=== PATIENT | female | born 1940 | race Caucasian/White ===

== ENCOUNTER → 2017-12-06 13:47 | Outpatient (CLI) | payer MEDICARE, BC, SELFPAY | PROVIDERS: Visit Provider Physician Assistant | DX: R30.0 Dysuria (principal) | CPT/HCPCS: 87077; 87086; 87186 ==

== ENCOUNTER → 2018-04-03 16:30 | Outpatient (CLI) | payer MEDICARE, BC, SELFPAY | PROVIDERS: Visit Provider Physician Assistant | DX: N39.0 Urinary tract infection, site not specified (principal) | CPT/HCPCS: 87077; 87086; 87186 ==

== ENCOUNTER → 2018-12-05 17:01 | Outpatient (CLI) | payer MEDICARE, BC, SELFPAY ==
[2018-12-05 17:12] LABS: Add Manual Diff / Slide Review NO; Basophils Absolute Auto 100 /uL (0-100); Basophils Percent Auto 0.7 % (0-2); Eosinophils Absolute Auto 0 /uL (0-450); Eosinophils Percent Auto 0.2 % (2-4); Hematocrit 44.9 % (36-46); Hemoglobin 15.5 g/dL (12.0-16.0); Lymphocytes Absolute Auto 2500 /uL (1100-4500); Lymphocytes Percent Auto 24.9 % (25-40); Mean Corpuscular HGB Conc 34.6 % (30-36); Mean Corpuscular Hemoglobin 32.8 PG (26-34); Monocytes Absolute Auto 800 /uL (0-900); Monocytes Percent Auto 8.1 % (3-14); Neutrophils Absolute Auto 6600 /uL (1500-7000); Neutrophils Percent Auto 66.1 % (50-75); Platelet Count 302 X10^3/uL (150-400); Red Blood Cell Count 4.73 X10^6/uL (4.0-5.2); Red Cell Distribution Width 12.8 % (11.6-14.8); White Blood Cell Count 9.9 X10^3/uL (4.5-11.0)
--- NOTE | 2018-12-05 17:32 | DI.RAD.S_ITS ---
PROCEDURE: XR ACUTE ABDOMEN SERIES INDICATIONS: abdominal pain TECHNIQUE: One view chest and two views of the abdomen were acquired. COMPARISON: None. FINDINGS: Surgical changes and devices: A pessary in the pelvis.. Chest: Lungs are clear. Heart size is normal. No pleural effusions. No pneumoperitoneum. Abdomen: Large amount of fecal debris. Bowel gas pattern is normal. No suspicious calcifications. Visualized solid organ contours appear normal. Bones: No suspicious bony lesions. IMPRESSION: Large amount of fecal debris. Normal bowel gas pattern. Dictated by: Tomás Magana M.D. on 12/05/2018 at 18:00 Approved by: Tomás Magana M.D. on 12/05/2018 at 18:02
[2018-12-05 17:38] LABS: Alanine Aminotransferase 24 IU/L (9-52); Albumin 4.7 g/dL (3.5-5.0); Albumin Globulin Ratio 1.3 (1.0-2.8); Alkaline Phosphatase 61 U/L (38-126); Aspartate Aminotransferase 25 IU/L (14-36); BUN Creatinine Ratio 23.3 (6-22); Bilirubin Total 0.8 mg/dL (0.2-1.3); Blood Urea Nitrogen 14 mg/dL (7-17); Calcium 9.9 mg/dL (8.4-10.2); Carbon Dioxide 29 mmol/L (22-32); Chloride 101 mmol/L (98-107); Estimated Glomerular Filt Rate > 60.0 mL/min (>60); Globulin 3.6 g/dL (1.7-4.1); Glucose 97 mg/dL (80-110); HEMOLYSIS < 15 (0-50); Lipase 105 U/L (23-300); Potassium 3.8 mmol/L (3.4-5.1); Sodium 140 mmol/L (137-145); Total Protein 8.3 g/dL (6.3-8.2)
== END ==
PROVIDERS: Visit Provider Physician Assistant
DX: R10.9 Unspecified abdominal pain (principal)
CPT/HCPCS: 36415; 74022; 80053; 83690; 85025

== ENCOUNTER → 2018-12-06 13:20 | Outpatient (CLI) | payer MEDICARE, BC, SELFPAY ==
--- NOTE | 2018-12-06 13:57 | DI.CT.S_ITS ---
PROCEDURE: CT ABDOMEN PELVIS W CON INDICATIONS: abdominal pain TECHNIQUE: After the administration of oral and intravenous contrast, 5 mm thick sections acquired from the diaphragms to the symphysis. 5 mm thick coronal and sagittal reformats were performed. For radiation dose reduction, the following was used: automated exposure control, adjustment of mA and/or kV according to patient size. COMPARISON: Located Within [facility], CR, XR ACUTE ABDOMEN SERIES, 12/05/2018, 17:38. FINDINGS: Image quality: Excellent. ABDOMEN: Lung bases: There is a 6 mm groundglass nodule in the left lower lobe. Heart size is normal. Solid organs: Liver is normal in size and enhancement. Gallbladder is normal. Biliary system is non-dilated. Pancreas enhances normally. Spleen is normal in size and enhancement. No adrenal nodules. Kidneys are normal in size and enhancement, without hydronephrosis. Peritoneum and bowel: There are numerous colonic diverticula. There is segmental thickening of sigmoid colon. Stomach, small bowel, and colon loops are normal in caliber. No free fluid or air. Nodes and vessels: No retroperitoneal or mesenteric adenopathy. Aorta and inferior vena cava are normal in caliber. Moderate atherosclerotic calcification. Miscellaneous: There is a tiny umbilical hernia. PELVIS: Genitourinary: Bladder wall thickness is normal. Hysterectomy. There is a metallic device in pelvis. Miscellaneous: No inguinal hernias or adenopathy. Bones: No suspicious bony lesions. No vertebral body compression fractures. Severe degenerative disc and facet disease lumbar spine. IMPRESSION: 1. There are numerous colonic diverticula. There is segmental thickening of sigmoid colon suggesting diverticulitis. Colonic neoplasm could have a similar appearance. Followup colonoscopy is suggested. 2. A 6 mm groundglass nodule in the left lower lobe. Please see enclosed followup recommendation. Fleischner Society criteria for SUB-SOLID lung nodule followup. Solitary pure ground-glass nodules5 mm or lessNo followup needed. >5 mm3 mo follow-up CT to confirm persistence. Then annual CT for 3 years. Part-solid nodules3 mo follow-up CT to confirm persistence. If persistent with solid component <5 mm, annual CT for at least 3 years. If solid component is 5 mm or more, biopsy or surgical resection. Consider PET-CT for lesions > 10 mm. Multiple sub-solid nodulesPure ground glass nodules [address] at 2 and 4 years. Pure ground glass nodules >5 mm without dominant lesion. [address] to confirm persistence, then annual followup CT for at least 3 years. Dominant nodule(s) with part-solid or solid component. [address] to confirm persistence. If persistent, consider biopsy or surgical resection, khang if lesions have >5 mm solid component. Dictated by: Jyoti Hoskins M.D. on 12/06/2018 at 14:47 Approved by: Jyoti Hoskins M.D. on 12/06/2018 at 14:58
== END ==
PROVIDERS: Visit Provider Physician Assistant
DX: R10.9 Unspecified abdominal pain (principal); K57.30 Diverticulosis of large intestine without perforation or abscess without bleeding; R91.1 Solitary pulmonary nodule
CPT/HCPCS: 74177; Q9967

== ENCOUNTER → 2019-03-28 12:43 | Outpatient (CLI) | payer MEDICARE, BC, SELFPAY ==
--- NOTE | 2019-03-28 12:48 | DI.CT.S_ITS ---
PROCEDURE: CT ABDOMEN PELVIS W CON INDICATIONS: ground glass nodule 6cm TECHNIQUE: After the administration of oral and intravenous contrast, 5 mm thick sections acquired from the diaphragms to the symphysis. 5 mm thick coronal and sagittal reformats were performed. For radiation dose reduction, the following was used: automated exposure control, adjustment of mA and/or kV according to patient size. COMPARISON: [facility], CT, CT ABDOMEN PELVIS W CON, 12/06/2018, 14:16. FINDINGS: Image quality: Excellent. ABDOMEN: Lung bases: Stable 6 mm part solid/groundglass nodule in the left lower lobe. Remainder of the visualized lung bases are clear. Heart size is normal. Solid organs: Liver is normal in size and enhancement. Gallbladder is unremarkable. Biliary system is non-dilated. Pancreas enhances normally. Spleen is normal in size and enhancement. No adrenal nodules. Kidneys are normal in size and enhancement, without hydronephrosis. Peritoneum and bowel: Stomach, small bowel, and colon loops are normal in caliber and wall thickness. Scattered colonic diverticulosis as before with interval decrease in degree of wall thickening involving a segment of sigmoid colon seen on the prior study. No evidence for acute diverticulitis. No evidence of asymmetric wall thickening of the imaged bowel. No free fluid or air. Nodes and vessels: No retroperitoneal or mesenteric adenopathy. Scattered atherosclerotic calcifications of the abdominal aorta and iliac vessels without aneurysmal dilatation. Miscellaneous: No ventral hernias. PELVIS: Genitourinary: Bladder wall thickness is normal. The uterus is nonvisualized and presumably surgically removed. Curvilinear hyperdense device is noted in the lower midline pelvis possibly representing a pessary device or other medical resident for prolapse issues. Miscellaneous: No inguinal hernias or adenopathy. Bones: No suspicious bony lesions. No acute vertebral body compression fractures. Multilevel spondylitic changes throughout the imaged spine. IMPRESSION: 1. CT abdomen and pelvis without acute abnormalities. 2. Scattered colonic diverticulosis with interval resolution versus significant decrease in conspicuity of previously described segmental thickening of the sigmoid colon. This likely represents resolution of previously described diverticulitis. Currently, no acute diverticulitis identified. If not already accomplished, consider routine screening colonoscopy to exclude underlying neoplastic process. 3. Persistent, stable 6 mm left lower lobe subsolid/groundglass nodule. Recommend followup chest CT in 6 months to document stability. If stable at that time, recommend annual followup CTs for 5 years. Dictated by: Nilay Hackett M.D. on 03/28/2019 at 18:49 Approved by: Nilay Hackett M.D. on 03/28/2019 at 18:57
[2019-03-28 13:42] LABS: Chloride 100 mmol/L (98-107); HEMOLYSIS < 15 (0-50); Potassium 4.1 mmol/L (3.4-5.1); Sodium 139 mmol/L (137-145)
[2019-03-28 13:47] LABS: BUN Creatinine Ratio 22.9 (6-22); Blood Urea Nitrogen 16 mg/dL (7-17); Calcium 9.8 mg/dL (8.4-10.2); Carbon Dioxide 30 mmol/L (22-32); Estimated Glomerular Filt Rate > 60.0 mL/min (>60); Glucose 97 mg/dL (80-110)
== END ==
PROVIDERS: PCP Nurse Practitioner; Visit Provider Nurse Practitioner
DX: R91.1 Solitary pulmonary nodule (principal); Z01.812 Encounter for preprocedural laboratory examination
CPT/HCPCS: 36415; 74177; 80048; Q9967

== ENCOUNTER → 2019-11-01 11:35 | Outpatient (CLI) | payer MEDICARE, BC, SELFPAY ==
--- NOTE | 2019-11-01 11:37 | DI.CT.S_ITS ---
PROCEDURE: CT CHEST WO CON INDICATIONS: f/u lung nodule TECHNIQUE: Noncontrast 2.0-2.5 mm thick sections acquired from the pulmonary apices to the posterior costophrenic angles. 7 mm thick axial MIP and 5 mm coronal and sagittal reformats were then acquired. A low radiation dose technique was utilized. COMPARISON: [facility], CT, CT ABDOMEN PELVIS W CON, 03/28/2019, 13:53. [facility], CT, CT ABDOMEN PELVIS W CON, 12/06/2018, 14:16. FINDINGS: Image quality: Diagnostic, given the low radiation dose technique. Lungs and pleura: At the lateral left lung base currently seen on series 3 image 155 there is a stable appearing part solid, part alveolar radiolucency subsolid nodule, measuring 5 x 6 mm in dimension. This has been previously documented on the uppermost imaging of the abdomen CTs performed 12/06/18 and 03/28/90. Mediastinum: Heart size is normal. No pericardial effusion. No mediastinal adenopathy by size criteria. Thoracic aorta and central pulmonary arteries are normal in size. Esophagus is normal in caliber. No hiatal hernia. Bones and chest wall: No suspicious bony lesions. No vertebral body compression fractures. No axillary or supraclavicular adenopathy by size criteria. Thyroid gland is not well-seen. Abdomen: Visualized upper abdomen solid organs and bowel loops appear normal in the absence of contrast. IMPRESSION: Recommend yearly followup CT scanning as defined by the Fleischner Society for followup of solid and subsolid pulmonary nodules in the worksheet below. The structure has not changed in size but subsolid nodules may represent low-grade pulmonary neoplasm with little manager of change time and for this reason yearly noncontrast followup CT scanning for a total of 5 years from initial detection is recommended. Fleischner Society criteria for SUB-SOLID lung nodule followup. Solitary pure ground-glass nodules<6 mm (ground glass or part solid)No followup needed. 6 mm or larger (ground glass)CT at 6-12 months to confirm persistence, then CT every 2 years until 5 years.6 mm or larger (part solid)CT at 3-6 months to confirm persistence, then annual CT until 5 years if unchanged and solid component remains <6 mm. Multiple sub-solid nodules<6 mmCT at 3-6 months, then CT consider at 2 & 4 years for high risk patients. [address] at 3-6 months. Subsequent management based on most suspicious lesions. Recommendations do not apply to lung cancer screening, patients with immunosuppression, or patients with known primary cancer. Dictated by: Manish Riggs M.D. on 11/01/2019 at 12:34 Approved by: Manish Riggs M.D. on 11/01/2019 at 12:39
[2019-11-01 12:24] LABS: Blood Urea Nitrogen 16 mg/dL (7-17); Calcium 9.4 mg/dL (8.4-10.2); Carbon Dioxide 24 mmol/L (22-32); Chloride 102 mmol/L (98-107); Estimated Glomerular Filt Rate > 60.0 mL/min (>60); Glucose 103 mg/dL (80-110); Potassium 4.5 mmol/L (3.4-5.1); Sodium 135 mmol/L (137-145)
[2019-11-01 12:54] LABS: HEMOLYSIS 185 (0-50)
== END ==
PROVIDERS: PCP Nurse Practitioner; Referring Provider Nurse Practitioner; Visit Provider Nurse Practitioner
DX: Z01.812 Encounter for preprocedural laboratory examination (principal); R91.1 Solitary pulmonary nodule
CPT/HCPCS: 36415; 71250; 80048

== ENCOUNTER → 2019-12-11 10:20 | Outpatient (CLI) | payer MEDICARE, BC, SELFPAY ==
--- NOTE | 2019-12-11 10:23 | DI.RAD.S_ITS ---
PROCEDURE: XR CERVICAL SPINE 4V OR 5V INDICATIONS: neck pain TECHNIQUE: 5 views of the cervical spine acquired. COMPARISON: None. FINDINGS: Bones: No fractures or dislocations to the T1 level. Oblique images demonstrate no bony foraminal stenoses. Soft tissues: No prevertebral soft tissue swelling. IMPRESSION: There is mild to moderate degenerative disc disease at C4-5 and C5-6, without subluxation. Facet osteoarthritis is mild through these levels, symmetric. No definite spinal or foraminal stenosis is found. Dictated by: Manish Riggs M.D. on 12/11/2019 at 12:05 Approved by: Manish Riggs M.D. on 12/11/2019 at 12:06
--- NOTE | 2019-12-11 10:23 | DI.RAD.S_ITS ---
PROCEDURE: XR LUMBAR SPINE MIN 4V INDICATIONS: LOW BACK PAIN TECHNIQUE: 5 views of the lumbar spine were acquired. COMPARISON: None. FINDINGS: Bones: 5 nonrib-bearing vertebrae are present. There is mildly dextroscoliotic bony alignment. No vertebral body compression fractures. No suspicious bony lesions. Note is made of degenerative disc disease that is moderately severe at L3-4 and L4-5 and mild elsewhere. Facet osteoarthritis becomes progressively more prominent from L3-S1 and allow slight anterolisthesis of L5 on S1, grade 1. Soft tissues: Overlying bowel gas pattern is normal. No suspicious soft tissue calcifications. Oblique images: No pars defects. IMPRESSION: Convex rightward scoliosis centered at the L2-L3 level of the LS-spine, no compression fracture found. Moderately severe L3-4 and L4-5 degenerative disc disease with mild degeneration elsewhere. Finally, facet osteoarthritis over the middle and lower thirds of the LS-spine to the degree that spinal and foraminal stenosis likely is present in those areas. Minimal anterolisthesis noted due to ligamentous laxity at L5-S1 only. Dictated by: Manish Riggs M.D. on 12/11/2019 at 12:06 Approved by: Manish Riggs M.D. on 12/11/2019 at 12:08
== END ==
PROVIDERS: PCP Nurse Practitioner; Referring Provider Physical Medicine & Rehabilitation; Visit Provider Physical Medicine & Rehabilitation
DX: M50.121 Cervical disc disorder at C4-C5 level with radiculopathy (principal); M47.22 Other spondylosis with radiculopathy, cervical region; M47.26 Other spondylosis with radiculopathy, lumbar region; M47.27 Other spondylosis with radiculopathy, lumbosacral region; M51.16 Intervertebral disc disorders with radiculopathy, lumbar region; M41.86 Other forms of scoliosis, lumbar region
CPT/HCPCS: 72050; 72110

== ENCOUNTER → 2019-12-18 15:38 | Outpatient (CLI) | payer MEDICARE, BC, SELFPAY ==
--- NOTE | 2019-12-18 15:42 | DI.MRI.S_ITS ---
PROCEDURE: MR LUMBAR SPINE WO CON INDICATIONS: Bilateral leg pain TECHNIQUE: Noncontrast sagittal T1 spin echo and T2 fast echo, sagittal STIR, axial T1 and T2 fast spin echo through the lumbar spine. In cases with scoliosis, additional coronal T2 fast spin echo may be performed. COMPARISON: [facility], CT, CT ABDOMEN PELVIS W CON, 03/28/2019, 13:53. [facility], CR, XR LUMBAR SPINE MIN 4V, 12/11/2019, 10:15. [facility], MR, MR CERVICAL SPINE WO CON, 12/18/2019, 15:53. FINDINGS: Image quality: Excellent. Alignment and Curvature: There is normal bony alignment. Bone Marrow: Marrow is of normal overall signal. Scattered foci are seen, which are hyperintense on T1-weighted and T2-weighted imaging, which are most consistent with benign vertebral body hemangiomas. No acute vertebral body compression fractures. Spinal Cord: Conus medullaris terminates at the L1 level. Visualized cord demonstrates normal signal and size. Paraspinous Soft Tissues: No paravertebral masses. T12-L1: Normal appearance. L1-L2: The disc height is well-preserved. Loss of disc signal is seen at this level. Mild loss of disc height is seen. Loss of disc signal is seen. Moderate bilateral neural foraminal narrowing is seen, left worse than right. No significant central canal narrowing is seen. L2-L3: Moderate loss of disc height is seen. Loss of disc signal is seen. Endplate irregularity is seen. Moderate disc bulge is seen, which is eccentric to the right. There is a central disc protrusion present at this level. There is at least moderate facet hypertrophy seen. Associated hypertrophy of the ligamentum flavum can be seen. There is moderate bilateral neural foraminal narrowing seen, left worse than right. At least moderate central canal narrowing is seen. L3-L4: There is at least moderate loss of disc height and disc signal. Reactive marrow endplate changes are seen, which are hyperintense on T1-weighted and T2-weighted imaging and most consistent with fatty metaplasia (Modic type II changes). Moderate generalized disc bulge is seen. Moderate facet joint hypertrophy is seen. Associated hypertrophy of the ligamentum flavum can be seen. Moderate bilateral neural foraminal narrowing is seen, left worse than right. Moderate central canal narrowing is seen. L4-L5: At least moderate loss of disc height and disc signal can be seen. Moderate disc bulge is seen, which is eccentric to the right. At least moderate facet hypertrophy is seen at this level. Moderate bilateral neural foraminal narrowing is seen, right worse than left. Moderate central canal narrowing is seen. L5-S1: The disc height is well-preserved. Loss of disc signal is seen at this level. Mild to moderate disc bulge is seen. Moderate facet joint hypertrophy is seen. There is moderate left-sided and mild right-sided neural foraminal narrowing seen. No significant central canal narrowing is seen. IMPRESSION: Multiple levels of lumbar spine degenerative change are seen, which are worst at L2-3, L3-4, and L4-5. Dictated by: Edgar Fitch M.D. on 12/18/2019 at 16:23 Approved by: Edgar Fitch M.D. on 12/18/2019 at 16:31
--- NOTE | 2019-12-18 15:42 | DI.MRI.S_ITS ---
PROCEDURE: MR CERVICAL SPINE WO CON INDICATIONS: Bilateral arm pain TECHNIQUE: Noncontrast sagittal T1 spin echo and T2 fast spin echo, sagittal STIR, foraminal oblique sagittal T2 fast spin echo, and axial gradient echo or T2 fast spin echo through the cervical spine. COMPARISON: [facility], CT, CT CHEST WO CON, 11/01/2019, 11:58. FINDINGS: Image quality: Excellent. Alignment and Curvature: There is trace anterolisthesis of C3 on C4, C5 on C6, C6 on C7, C7 on T1, ttrace retrolisthesis of C4 on C5. Bone Marrow: Marrow demonstrates normal overall signal. Increased T1 and T2 signal is present at C5 consistent with hemangioma. Spinal Cord: Visualized spinal cord has normal size and signal. No cerebellar tonsillar herniation. Paraspinous Soft Tissues: No paravertebral masses. Prevertebral soft tissues are normal in thickness. Prominent T2 hyperintensity is present at the right thyroid lobe. This area demonstrate hypoattenuation on prior CT chest of 11/01/2019. Discs: Multilevel moderate to severe disc desiccation is present. C2-C3: Minimal disc bulge without spinal stenosis or foraminal narrowing. Mild uncovertebral hypertrophy. C3-C4: Mild disc bulge without spinal stenosis. Minimal to mild right foraminal narrowing with uncovertebral hypertrophy. C4-C5: Mild disc bulge with mild spinal stenosis. Moderate to severe bilateral foraminal narrowing with uncovertebral hypertrophy. C5-C6: Mild disc bulge with moderate to severe spinal stenosis. [id number] right and moderate left foraminal narrowing with uncovertebral hypertrophy. C6-C7: Mild disc bulge without spinal stenosis. Mild bilateral foraminal narrowing with uncovertebral hypertrophy. C7-T1: No disc bulge, spinal stenosis or foraminal narrowing. IMPRESSION: 1. Multilevel spinal stenosis most severe at C5-6 secondary to disc bulge with contributing effect of facet/ligamentum flavum arthropathy. 2. Multilevel foraminal narrowing most severe at C4-5 secondary to uncovertebral arthropathy. 3. Suggestion of thyroid cyst within the right lobe. Thyroid ultrasound recommended for further evaluation. Dictated by: Marleny Smart M.D. on 12/18/2019 at 16:39 Approved by: Marleny Smart M.D. on 12/18/2019 at 16:45
== END ==
PROVIDERS: PCP Nurse Practitioner; Referring Provider Physical Medicine & Rehabilitation; Visit Provider Physical Medicine & Rehabilitation
DX: M50.11 Cervical disc disorder with radiculopathy, high cervical region (principal); M48.02 Spinal stenosis, cervical region; M47.27 Other spondylosis with radiculopathy, lumbosacral region; M47.26 Other spondylosis with radiculopathy, lumbar region; M79.601 Pain in right arm; M79.602 Pain in left arm; M79.604 Pain in right leg; M79.605 Pain in left leg
CPT/HCPCS: 72141; 72148

== ENCOUNTER → 2020-02-07 10:35 | Outpatient (CLI) | payer MEDICARE, BC, SELFPAY ==
--- NOTE | 2020-02-07 10:37 | DI.US.S_ITS ---
PROCEDURE: US THYROID INDICATIONS: Thyroid nodule on MRI TECHNIQUE: Real-time scanning was performed of the thyroid gland, with image documentation. COMPARISON: [facility], CT, CT CHEST WO CON, 11/01/2019, 11:58. [facility], MR, MR CERVICAL SPINE WO CON, 12/18/2019, 15:53. FINDINGS: Right: Thyroid lobe measures 6.2 x 3.8 x 2.2 cm, and is homogeneous in echotexture. Left: Thyroid lobe measures 4.7 x 1.7 x 1.5 cm, and is homogenous in echotexture. Isthmus: 5 mm thick. Nodule number: 1 Location: Right mid Size: 3.8 x 3 x 2.6 cm. Composition: Solid and cystic Echogenicity: Isoechoic Shape: wider than tall. Margins: Ill-defined. Increased vascularity. Echogenic foci: Small calcification Total points: 3 ACR TI-RADS category: TR 3, mildly suspicious Nodule number: 2 Location: Left inferior Size: 0.9 x 0.9 x 0.8 cm. Composition: Mixed cystic and solid Echogenicity: Hypoechoic Shape: wider than tall. Margins: Smooth Echogenic foci: None Total points: 3 ACR TI-RADS category: TR 3, mildly suspicious Nodule number: 3 Location: Left mid Size: 1.2 x 1.2 x 0.8 cm. Composition: Solid Echogenicity: Hypoechoic Shape: wider than tall. Margins: Ill-defined Echogenic foci: None Total points: 4 ACR TI-RADS category: TR 4, moderately suspicious Nodule number: 4 Location: Left upper Size: 1.7 x 1 x 0.7 cm. Composition: Solid Echogenicity: Hyperechoic Shape: wider than tall. Margins: Smooth Echogenic foci: None Total points: 3 ACR TI-RADS category: TR 3, mildly suspicious IMPRESSION: 1. Right mid thyroid nodule measuring 3.8 cm, TR 3, mildly suspicious. -FNA is recommended. 2. Left mid thyroid nodule measuring 1.2 cm, TR 4, moderately suspicious. -A follow-up thyroid ultrasound in 1 year is recommend. 3. Left upper thyroid nodule measuring 1.7 cm, TR 3, mildly suspicious. -A follow-up thyroid ultrasound in 1 year is recommend. ACR TI-RADS definitions and recommendations: TI-RADS 1 (benign): 0 points. FNA not needed. TI-RADS 2 (not suspicious): 2 points. FNA not needed. TI-RADS 3 (mildly suspicious): 3 points. * FNA if 2.5 cm or larger, follow up if 1.5 cm or larger (at 1, 3, and 5 years). TI-RADS 4 (moderately suspicious): 4-6 points. * FNA if 1.5 cm or larger, follow up if 1 cm or larger (at 1, 2, 3, and 5 years). TI-RADS 5 (highly suspicious): 7 points or more. * FNA if 1 cm or larger, follow up if 0.5 cm or larger (every year for 5 years). Dictated by: Paulie Ordaz M.D. on 02/07/2020 at 15:34 Approved by: Paulie Ordaz M.D. on 02/07/2020 at 15:49
== END ==
PROVIDERS: PCP Nurse Practitioner; Referring Provider Nurse Practitioner; Visit Provider Physical Medicine & Rehabilitation
DX: E04.2 Nontoxic multinodular goiter (principal)
CPT/HCPCS: 76536

== ENCOUNTER → 2020-03-12 12:34 | Outpatient (CLI) | payer MEDICARE, BC, SELFPAY ==
--- NOTE | 2020-03-12 | PATH_ITS ---
Note [facility] Accession Number: [id number] TESTS RESULT FLAG UNITS REF RANGE LAB Clinician Provided Cytology Information No. of containers..00 Previously Prepared Cytology Slide 35 Unknown Storage/container code(s) 01 R MID THYROID NODULE DIAGNOSIS: 02 R MID THYROID NODULE NEGATIVE FOR MALIGNANT CELLS. [place] CATEGORY II. SPECIMEN CONSISTS OF SCANT, BENIGN FOLLICULAR CELLS, VERY SCANT COLLOID, AND BLOOD. THIS PATTERN IS SUGGESTIVE OF A BENIGN NODULE. THE SPECIMEN IS BARELY ADEQUATE FOR EVALUATION DUE TO SCANT CELLULARITY. PLEASE CORRELATE WITH CLINICAL AND IMAGING FINDINGS. Pathologist ICD10: 02 E04.1 01 Never a smoker. Medical History reviewed 02/04/20 @10:33 by Steve Boston DO: Cervical radiculopathy(Acute) Chicken pox (resolved) Chronic back pain (Chronic) Chronic insomnia (Acute) Skin cancer (Chronic - 2015) Thyroid nodule (Acute) 02 Maryann Herrera MD, Pathologist NPI- [id number] 01 Fred Winn, Employee Benefits Director (ASCP) 01 30 CC, RED, CLOUDY Also received in cytolyt with 10 alcohol fixed, 10 quick stained slides. and 1 RNA vial. /[facility] 03/13/2020 1138 Local FLAG LEGEND: L-Low Normal,H-High Normal,LL-Alert Low,HH-Alert High <-Panic Low,>-Panic High,A-Abnormal,AA-Critical Abnormal Performed at: 01 =Z [facility] [address] [place] [address] [address], [place] [address] Colton Escobar MD, [address] [facility] [address] [place] [address] Mary Lou Ortiz MD, Performed at: 01 [facility] [address] [id number] MD Colton Escobar MD Phone: [phone]
--- NOTE | 2020-03-12 12:35 | DI.US.S_ITS ---
PROCEDURE: US FINE NEEDLE ASPIRATION INDICATIONS: RIGHT MID THYROID NODULE TECHNIQUE: The indications, alternatives, benefits, risks, and complications of the procedure were explained to the patient. Written informed consent was obtained and placed in the chart. The area of interest was examined sonographically and a site was chosen for ultrasound guided percutaneous sampling. The skin was prepared and draped in the usual fashion, and anesthetized with 1% lidocaine infiltrated from the skin down to the lesion. Multiple passes were then performed, with contents emptied into an appropriate pathology specimen container. A bandage was applied to the area of access at completion of the study. COMPARISON: None. FINDINGS: Location(s) of lesion(s) sampled: Middle 3rd of the right thyroid lobe dominant nodule Banks: 25 gauge hypodermic needles. Number of passes: 10 Medications: 1% lidocaine for local anaesthesia. Complications: None. IMPRESSION: Successful ultrasound-guided middle 3rd right thyroid nodule fine needle aspiration, with cytology results pending. Dictated by: Manish Riggs M.D. on 03/12/2020 at 16:16 Approved by: Manish Riggs M.D. on 03/12/2020 at 16:16
== END ==
PROVIDERS: PCP Nurse Practitioner; Referring Provider Nurse Practitioner; Visit Provider Nurse Practitioner
DX: E04.1 Nontoxic single thyroid nodule (principal)
CPT/HCPCS: 10005

== ENCOUNTER → 2020-10-23 08:59 | Outpatient (CLI) | payer MEDICARE, BC, SELFPAY ==
--- NOTE | 2020-10-23 09:00 | DI.CT.S_ITS ---
PROCEDURE: CT CHEST WO CON INDICATIONS: lung nodule TECHNIQUE: Noncontrast 2.0-2.5 mm thick sections acquired from the pulmonary apices to the posterior costophrenic angles. 7 mm thick axial MIP and 5 mm coronal and sagittal reformats were then acquired. A low radiation dose technique was utilized. COMPARISON: [facility], US, US FINE NEEDLE ASPIRATION, 03/12/2020, 13:01. [facility], US, US THYROID, 02/07/2020, 10:58. [facility], CT, CT ABDOMEN PELVIS W CON, 12/06/2018, 14:16. [facility], CT, CT CHEST WO CON, 11/01/2019, 11:58. FINDINGS: Image quality: Diagnostic, given the low radiation dose technique. Lungs and pleura: Laterally within the left lower lobe, there is a subsolid nodule measuring up to 0.8 cm on series 3, image 141 which appears progressively increased in size and density compared to the prior studies. Multiple new bilateral small solid pulmonary nodules are also demonstrated with merchandiser retail representative nodules in the right middle lobe measuring 0.3 cm on series 3, image 175 and 0.4 cm on series 3, image 189. Flying Teacher nodule medially in the left upper lobe measures up to 0.4 cm on series 3, image 53. A merchandiser retail representative nodule within the medial right lower lobe on series 3, image 189 measures 0.5 cm. Mediastinum: Heart size is normal. No pericardial effusion. No mediastinal adenopathy by size criteria. Thoracic aorta and central pulmonary arteries are normal in size. Esophagus is normal in caliber. No hiatal hernia. Bones and chest wall: No suspicious bony lesions. No vertebral body compression fractures. No axillary or supraclavicular adenopathy by size criteria. There is a hypoattenuating mass within the right thyroid lobe measuring up to 2.7 x 2.2 cm Abdomen: Visualized upper abdomen demonstrates colonic diverticulosis. IMPRESSION: 1. Left lower lobe subsolid nodule demonstrates progressive increase in size compared to the prior studies. 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 2. Multiple new small bilateral pulmonary nodules as described involving all lobes. The findings are nonspecific and the differential includes infectious or inflammatory etiologies as well as metastatic disease. Recommend short-term follow-up in 3 months to demonstrate stability or resolution. 3. Hypoattenuating right thyroid nodule corresponding to the nodule on prior ultrasound with subsequent fine needle aspiration. Fleischner Society criteria for SOLID lung nodule followup. Nodule size (mm)Low-risk patientHigh-risk patient<6 (single or multiple)No routine followup.Optional CT at 12 months. 6-8 (single or multiple)CT at 6-12 months, then optional CT at 18-24 mo.CT at 6-12 months, then CT at 18-24 months. >8 (single)CT at 3 months, PET-CT, or biopsy. Same as for low-risk pts. >8 (multiple)CT at 3-6 months, then optional CT at 18-24 mo.CT at 3-6 months, then CT at 18-24 months. Fleischner Society criteria for SUB-SOLID lung nodule followup. Solitary pure ground-glass nodules<6 mm (ground glass or part solid)No followup needed. 6 mm or larger (ground glass)CT at 6-12 months to confirm persistence, then CT every 2 years until 5 years.6 mm or larger (part solid)CT at 3-6 months to confirm persistence, then annual CT until 5 years if unchanged and solid component remains <6 mm. Multiple sub-solid nodules<6 mmCT at 3-6 months, then CT consider at 2 & 4 years for high risk patients. [address] at 3-6 months. Subsequent management based on most suspicious lesions. Recommendations do not apply to lung cancer screening, patients with immunosuppression, or patients with known primary cancer. Dictated by: Colton Gilmore M.D. on 10/23/2020 at 16:16 Approved by: Colton Gilmore M.D. on 10/23/2020 at 16:26
== END ==
PROVIDERS: PCP Nurse Practitioner; Referring Provider Nurse Practitioner; Visit Provider Nurse Practitioner
DX: R91.8 Other nonspecific abnormal finding of lung field (principal); E04.1 Nontoxic single thyroid nodule
CPT/HCPCS: 71250

== ENCOUNTER → 2020-12-03 07:06 | Outpatient (CLI) | payer MEDICARE, BC, SELFPAY ==
[2020-12-03 08:20] LABS: Hemoglobin A1C% w Est Avg Glu 5.6 % (4.0-6.0)
[2020-12-03 08:49] LABS: Alanine Aminotransferase 19 IU/L (<35); Albumin 4.1 g/dL (3.5-5.0); Albumin Globulin Ratio 1.2 (1.0-2.8); Alkaline Phosphatase 60 U/L (38-126); Aspartate Aminotransferase 28 IU/L (14-36); BUN Creatinine Ratio 23.7 (6-22); Bilirubin Total 0.6 mg/dL (0.2-1.3); Blood Urea Nitrogen 14 mg/dL (7-17); Calcium 9.7 mg/dL (8.4-10.2); Carbon Dioxide 29 mmol/L (22-32); Chloride 106 mmol/L (98-107); Cholesterol 266 mg/dL (140-199); Estimated Glomerular Filt Rate > 60.0 mL/min (>60); Globulin 3.4 g/dL (1.7-4.1); Glucose 107 mg/dL (80-110); HDL Cholesterol 58 mg/dL (40-60); HEMOLYSIS < 15 (0-50); LDL Cholesterol Calculated 179 mg/dL (<100); Potassium 4.1 mmol/L (3.4-5.1); Sodium 139 mmol/L (137-145); Total Protein 7.5 g/dL (6.3-8.2); Triglycerides 144 mg/dL (35-150)
[2020-12-03 09:03] LABS: Free T4, Direct Thyroxine 1.06 ng/dL (0.78-2.19)
[2020-12-03 09:16] LABS: Thyroid Stimulating Hormone 1.21 uIU/mL (0.47-4.68)
[2020-12-03 10:03] LABS: Creatinine Urine Random 75.8 mg/dL
[2020-12-03 10:07] LABS: Microalbumi Creatinin Ratio Ur 9.2 ug/mg CR (<30); Microalbumin Urine Random 0.7 mg/dL (0-1.6)
== END ==
PROVIDERS: PCP Nurse Practitioner; Referring Provider Nurse Practitioner; Visit Provider Nurse Practitioner
DX: D89.89 Other specified disorders involving the immune mechanism, not elsewhere classified (principal); Z79.899 Other long term (current) drug therapy; I10 Essential (primary) hypertension; E04.1 Nontoxic single thyroid nodule; E78.5 Hyperlipidemia, unspecified
CPT/HCPCS: 36415; 80053; 80061; 82043; 82570; 83036; 84439; 84443; 84481

== ENCOUNTER → 2021-03-06 12:43 | Outpatient (CLI) | payer MEDICARE, BC, SELFPAY ==
--- NOTE | 2021-03-06 12:51 | DI.CT.S_ITS ---
PROCEDURE: CT CHEST WO CON INDICATIONS: evaluate short term nodules in lungs TECHNIQUE: Noncontrast 2.0-2.5 mm thick sections acquired from the pulmonary apices to the posterior costophrenic angles. 7 mm thick axial MIP and 5 mm coronal and sagittal reformats were then acquired. COMPARISON: [facility], CT, CT CHEST WO CON, 10/23/2020, 9:07. FINDINGS: Image quality: Excellent Lungs and pleura: Multiple nodules present as follows: 1. Left lower lobe subsolid nodule on image 3/136 measures 8 mm, previously 8 mm. 2. Right middle lobe solid nodule on image 3/165 measures 3 mm, previously 3 mm 3. Right middle lobe solid nodule on image 3/178 measures 4 mm, previously 4 mm 4. Right lower lobe solid nodule on image 3/178 measures 1 mm, previously 5 mm No new nodules present. No focal infiltrate. Pleural spaces are clear. Mediastinum: Heart size is normal. No pericardial effusion. No mediastinal adenopathy by size criteria. Thoracic aorta and central pulmonary arteries are normal in size. Esophagus is normal in caliber. No hiatal hernia. Atherosclerotic vascular calcification noted in the aortic arch. Bones and chest wall: No suspicious bony lesions. No vertebral body compression fractures. No axillary or supraclavicular adenopathy by size criteria. Partially imaged nodule in the right lobe of the thyroid measures 3.2 cm, previously 2.7 cm Abdomen: Visualized upper abdomen solid organs and bowel loops appear normal in the absence of contrast. IMPRESSION: 1. Pulmonary nodules as above are either stable or improving. No new nodules. Consider additional 6 month follow-up. 2. Right middle lobe thyroid nodule is slightly larger than the prior exam Fleischner Society criteria for SOLID lung nodule followup. Nodule size (mm)Low-risk patientHigh-risk patient<6 (single or multiple)No routine followup.Optional CT at 12 months. 6-8 (single or multiple)CT at 6-12 months, then optional CT at 18-24 mo.CT at 6-12 months, then CT at 18-24 months. >8 (single)CT at 3 months, PET-CT, or biopsy. Same as for low-risk pts. >8 (multiple)CT at 3-6 months, then optional CT at 18-24 mo.CT at 3-6 months, then CT at 18-24 months. Fleischner Society criteria for SUB-SOLID lung nodule followup. Solitary pure ground-glass nodules<6 mm (ground glass or part solid)No followup needed. 6 mm or larger (ground glass)CT at 6-12 months to confirm persistence, then CT every 2 years until 5 years.6 mm or larger (part solid)CT at 3-6 months to confirm persistence, then annual CT until 5 years if unchanged and solid component remains <6 mm. Multiple sub-solid nodules<6 mmCT at 3-6 months, then CT consider at 2 & 4 years for high risk patients. [address] at 3-6 months. Subsequent management based on most suspicious lesions. Recommendations do not apply to lung cancer screening, patients with immunosuppression, or patients with known primary cancer. Dictated by: Francois Barnard M.D. on 03/07/2021 at 9:52 Approved by: Francois Barnard M.D. on 03/07/2021 at 12:58
== END ==
PROVIDERS: PCP Nurse Practitioner; Referring Provider Nurse Practitioner; Visit Provider Nurse Practitioner
DX: R91.8 Other nonspecific abnormal finding of lung field (principal); E04.9 Nontoxic goiter, unspecified
CPT/HCPCS: 71250

== ENCOUNTER → 2021-10-08 13:48 | Outpatient (CLI) | payer MEDICARE, BC, SELFPAY ==
--- NOTE | 2021-10-08 14:13 | DI.CT.S_ITS ---
PROCEDURE: CT CHEST WO CON INDICATIONS: evaluate known pulmonary and thyroid nodules TECHNIQUE: Noncontrast 5 mm thick sections acquired from the pulmonary apices to the posterior costophrenic angles. 1 mm lung window, 5 mm thick coronal and sagittal and 7 mm axial MIP reformats were then acquired. For radiation dose reduction, the following was used: automated exposure control, adjustment of mA and/or kV according to patient size. COMPARISON: [facility], CT, CT CHEST WO CON, 11/01/2019, 11:58. [facility], CT, CT CHEST WO CON, 03/06/2021, 12:51. FINDINGS: Image quality: Excellent. Lungs and pleura: Pulmonary nodules are as follows: 1. Subsolid pulmonary nodule, left lower lobe, image 154/3, 8 mm. Unchanged. No other definite pulmonary nodules are identified on today's study. No acute air space opacities. No pleural effusions or pneumothorax. Central and peripheral airways are patent and normal in caliber. Mediastinum: Heart size is normal. No pericardial effusion. No mediastinal adenopathy by size criteria. Thoracic aorta and central pulmonary arteries are normal in size. Esophagus is normal in caliber. No hiatal hernia. Bones and chest wall: No suspicious bony lesions. No vertebral body compression fractures. No axillary or supraclavicular adenopathy by size criteria. Thyroid gland contains a sizable right-sided nodule which does not appear significantly changed in size, measuring approximately 3 cm. Abdomen: Visualized upper abdominal solid organs and bowel loops appear normal in the absence of contrast. IMPRESSION: 1. Stable right thyroid nodule. 2. Stable 8 mm subsolid pulmonary nodule, left lower lobe. This nodule is unchanged from 11/01/2019. It is consistent with a benign pulmonary nodule. Comment: If this patient has significant risk factors for bronchogenic carcinoma, consider yearly screening lung CT. Dictated by: Tomás Magana M.D. on 10/08/2021 at 14:35 Approved by: Tomás Magana M.D. on 10/08/2021 at 14:48
== END ==
PROVIDERS: PCP Nurse Practitioner; Referring Provider Nurse Practitioner; Visit Provider Nurse Practitioner
DX: R91.8 Other nonspecific abnormal finding of lung field (principal); E04.1 Nontoxic single thyroid nodule
CPT/HCPCS: 71250

== ENCOUNTER → 2021-12-02 11:14 | Outpatient (CLI) | payer MEDICARE, BC, SELFPAY ==
[2021-12-02 12:50] LABS: Erythrocyte Sedimentation Rate 8 MM/HR (0-20)
[2021-12-02 13:25] LABS: C-Reactive Protein Quant < 0.5 mg/dL (<1.0)
== END ==
PROVIDERS: PCP Nurse Practitioner
DX: M35.3 Polymyalgia rheumatica (principal)
CPT/HCPCS: 36415; 85651; 86140

== ENCOUNTER → 2022-01-18 06:44 | Outpatient (CLI) | payer MEDICARE, BC, SELFPAY ==
[2022-01-18 09:21] LABS: Alanine Aminotransferase 18 IU/L (<35); Albumin 3.9 g/dL (3.5-5.0); Albumin Globulin Ratio 1.3 (1.0-2.8); Alkaline Phosphatase 45 U/L (38-126); Aspartate Aminotransferase 23 IU/L (14-36); BUN Creatinine Ratio 26.4 (6-22); Bilirubin Total 0.5 mg/dL (0.2-1.3); Blood Urea Nitrogen 19 mg/dL (7-17); Calcium 9.1 mg/dL (8.4-10.2); Carbon Dioxide 34 mmol/L (22-32); Chloride 102 mmol/L (98-107); Cholesterol 266 mg/dL (140-199); Estimated Glomerular Filt Rate > 60 mL/min (>60); Globulin 3.1 g/dL (1.7-4.1); Glucose 88 mg/dL (80-110); HDL Cholesterol 73 mg/dL (40-60); HEMOLYSIS < 15 (0-50); LDL Cholesterol Calculated 173 mg/dL (<100); Potassium 3.7 mmol/L (3.4-5.1); Sodium 141 mmol/L (137-145); Triglycerides 101 mg/dL (35-150)
[2022-01-18 09:36] LABS: Free T3, Triiodothyronine Free 3.59 pg/mL (2.77-5.27); Free T4, Direct Thyroxine 1.08 ng/dL (0.78-2.19)
[2022-01-18 16:04] LABS: Creatinine Urine Random 103.8 mg/dL
[2022-01-18 16:08] LABS: Microalbumi Creatinin Ratio Ur 10.5 ug/mg CR (<30); Microalbumin Urine Random 1.1 mg/dL (0-1.6)
== END ==
PROVIDERS: PCP Nurse Practitioner; Referring Provider Nurse Practitioner; Visit Provider Nurse Practitioner
DX: E78.2 Mixed hyperlipidemia (principal); E04.1 Nontoxic single thyroid nodule; D89.89 Other specified disorders involving the immune mechanism, not elsewhere classified; I10 Essential (primary) hypertension; R91.8 Other nonspecific abnormal finding of lung field; Z79.899 Other long term (current) drug therapy
CPT/HCPCS: 36415; 80053; 80061; 82043; 82570; 84439; 84443; 84481

== ENCOUNTER → 2022-10-27 09:52 | Outpatient (CLI) | payer MEDICARE, BC, SELFPAY ==
--- NOTE | 2022-10-27 09:59 | DI.CT.S_ITS ---
PROCEDURE: CT CHEST WO CON INDICATIONS: one year surveillance, lung nodule TECHNIQUE: Noncontrast 5 mm thick sections acquired from the pulmonary apices to the posterior costophrenic angles. 1 mm lung window, 5 mm thick coronal and sagittal and 7 mm axial MIP reformats were then acquired. For radiation dose reduction, the following was used: automated exposure control, adjustment of mA and/or kV according to patient size. COMPARISON: US, US THYROID, 02/07/2020, 10:58. [facility], CT, CT CHEST WO CON, 03/06/2021, 12:51. NM, NM PET CT FUSION SKULL 2 THIGH, 11/19/2020, 9:25. [facility], CT, CT CHEST WO CON, 10/23/2020, 9:07. [facility], CT, CT CHEST WO CON, 10/08/2021, 13:59. FINDINGS: Image quality: Excellent. Lungs and pleura: The subsolid 8 mm left lower lobe nodule appears stable in size. A couple of 2 mm nodules are seen, 1 in the left lower lobe (series 3, image 181), and 1 in the right lower lobe, (series 3 image 143). Both nodules are not definitively seen on the last exam. No acute air space opacities. No pleural effusions or pneumothorax. Central and peripheral airways are patent and normal in caliber. Mediastinum: Heart size is normal. Mild coronary artery calcification. No pericardial effusion. No mediastinal adenopathy by size criteria. Thoracic aorta and central pulmonary arteries are normal in size. Esophagus is normal in caliber. No hiatal hernia. Bones and chest wall: No suspicious bony lesions. No vertebral body compression fractures. No axillary or supraclavicular adenopathy by size criteria. There is a 2.8 cm nodule in the right thyroid lobe. Right thyroid lobe is enlarged. Abdomen: Visualized upper abdominal solid organs and bowel loops appear normal in the absence of contrast. IMPRESSION: 1. Stable 8 mm left lower lobe subsolid nodule. 2. A couple of 2 mm new nodules are seen in lower lobes, 1 on each side. An infectious or inflammatory etiology is favored. 3. Stable right thyroid nodule Dictated by: Jyoti Hoskins M.D. on 10/27/2022 at 12:18 Approved by: Jyoti Hoskins M.D. on 10/27/2022 at 12:33
== END ==
PROVIDERS: PCP Nurse Practitioner; Referring Provider Nurse Practitioner; Visit Provider Nurse Practitioner
DX: R91.1 Solitary pulmonary nodule (principal); E04.1 Nontoxic single thyroid nodule
CPT/HCPCS: 71250

== ENCOUNTER → 2022-11-12 09:15 | Outpatient (CLI) | payer MEDICARE, BC, SELFPAY ==
--- NOTE | 2022-11-12 09:17 | DI.RAD.S_ITS ---
PROCEDURE: XR CHEST 2V INDICATIONS: new pulmonary nodules per Chest CT that indicate inflammator TECHNIQUE: 2 views of the chest were acquired. COMPARISON: [facility], CT, CT CHEST WO CON, 10/27/2022, 10:00. FINDINGS: Surgical changes and devices: None. Lungs and pleura: Lungs are clear. No pleural effusions or pneumothorax. Mediastinum: Mediastinal contours are normal. Heart size is normal. Bones and chest wall: No suspicious bony abnormalities. Soft tissues appear unremarkable. IMPRESSION: No acute cardiopulmonary abnormality identified radiographically. Dictated by: Charly Landis M.D. on 11/12/2022 at 9:53 Approved by: Charly Landis M.D. on 11/12/2022 at 10:00
== END ==
PROVIDERS: PCP Nurse Practitioner; Referring Provider Nurse Practitioner; Visit Provider Nurse Practitioner
DX: R93.89 Abnormal findings on diagnostic imaging of other specified body structures (principal)
CPT/HCPCS: 71046

== ENCOUNTER → 2022-11-13 15:16 | Outpatient (CLI) | payer MEDICARE, BC, SELFPAY | PROVIDERS: PCP Nurse Practitioner; Visit Provider Physician Assistant | DX: R30.0 Dysuria (principal) | CPT/HCPCS: 87077; 87086; 87186 ==

== ENCOUNTER → 2022-11-27 15:58 | Outpatient (CLI) | payer MEDICARE, BC, SELFPAY | PROVIDERS: PCP Nurse Practitioner; Visit Provider Nurse Practitioner Family | DX: R30.0 Dysuria (principal) | CPT/HCPCS: 87077; 87086; 87186 ==

== ENCOUNTER → 2022-11-29 14:17 | Outpatient (CLI) | payer MEDICARE, BC, SELFPAY ==
--- NOTE | 2022-11-29 14:22 | DI.RAD.S_ITS ---
PROCEDURE: XR TIBIA FIBULA RT 2V INDICATIONS: Evaluate TECHNIQUE: 2 views of the tibia and fibula were acquired. COMPARISON: None. FINDINGS: Bones: No acute fractures or dislocations. No suspicious bony lesions. Soft tissues: Chondrocalcinosis is noted in the knee. IMPRESSION: 1. No acute osseous abnormality. If clinical suspicion and/or symptoms persist, additional imaging with repeat plain films, or advanced imaging (e.g. CT, MRI) may be helpful for further assessment. 2. Chondrocalcinosis. Approved by: Charly Esteban M.D. on 11/29/2022 at 16:32
== END ==
PROVIDERS: PCP Nurse Practitioner; Referring Provider Pediatrics; Visit Provider Pediatrics
DX: L98.9 Disorder of the skin and subcutaneous tissue, unspecified (principal); M11.261 Other chondrocalcinosis, right knee
CPT/HCPCS: 73590

== ENCOUNTER → 2022-12-03 17:24 | Outpatient (CLI) | payer MEDICARE, BC, SELFPAY ==
--- NOTE | 2022-12-03 | DI.MRI.S_ITS ---
PROCEDURE: MR CERVICAL SPINE WO CON INDICATIONS: STENOSIS TECHNIQUE: Noncontrast sagittal T1 spin echo and T2 fast spin echo, sagittal STIR, foraminal oblique sagittal T2 fast spin echo, and axial gradient echo or T2 fast spin echo through the cervical spine. COMPARISON: [facility], MR, MR CERVICAL SPINE WO CON, 12/18/2019, 15:53. FINDINGS: Image quality: Excellent. Alignment and Curvature: Stable trace retrolisthesis C4-5 and anterior listhesis C7-T1 Bone Marrow: Marrow demonstrates normal overall signal. Spinal Cord: Visualized spinal cord has normal size and signal. No cerebellar tonsillar herniation. Paraspinous Soft Tissues: Cystic right thyroid lesion again noted, stable C2-C3: Normal appearance. C3-C4: Hypertrophic facet joints without central or foraminal stenosis C4-C5: Disc space narrowing and hypertrophic uncovertebral joints read associated posterior disc osteophyte complex results in mild central stenosis. Moderate left and severe right foraminal stenosis. C5-C6: Disc space narrowing and posterior disc osteophyte complex with hypertrophic uncovertebral joints. Mild central stenosis. Moderate bilateral foraminal stenosis C6-C7: Disc height is preserved. No central or foraminal stenosis C7-T1: Normal appearance. IMPRESSION: Multilevel degenerative disc disease and arthropathy results in varying degrees of central and foraminal stenosis including moderate left and severe right foraminal stenosis at C4-5 Stable right thyroid cystic lesion Approved by: Francois Barnard M.D. on 12/06/2022 at 14:35
--- NOTE | 2022-12-03 | DI.MRI.S_ITS ---
PROCEDURE: MR LUMBAR SPINE WO CON INDICATIONS: STENOSIS TECHNIQUE: Noncontrast sagittal T1 spin echo and T2 fast echo, sagittal STIR, and T2 fast spin echo through the lumbar spine. In cases with scoliosis, additional coronal T2 fast spin echo may be performed. COMPARISON: [facility], MR, MR LUMBAR SPINE WO CON, 12/18/2019, 16:21. FINDINGS: Image quality: Excellent. Alignment and Curvature: There is normal bony alignment. Bone Marrow: Stable chronic degenerative endplate changes Spinal Cord: Conus medullaris terminates at the L1 level. Visualized cord demonstrates normal signal and size. Paraspinous Soft Tissues: No paravertebral masses. T12-L1: Normal appearance. L1-L2: Disc space narrowing with circumferential disc bulge and results in mild central stenosis. Moderate left and mild right foraminal stenosis L2-L3: Disc space narrowing with circumferential disc bulge, hypertrophic facet joints and ligamentum flavum laxity results in moderate central stenosis. Moderate left and mild right foraminal stenosis L3-L4: Disc space narrowing and circumferential disc bulge results in mild central stenosis. Hypertrophic facet joints contribute to bilateral moderate foraminal stenosis L4-L5: Disc space narrowing with circumferential disc bulge and hypertrophic facet joints. Mild central stenosis. L5-S1: Disc space is relatively preserved. Hypertrophic facet joints present. No central stenosis. No foraminal stenosis. IMPRESSION: Stable multilevel degenerative disc disease and arthropathy results in varying degrees of central and foraminal stenosis including moderate central left foraminal stenosis at L2-3 Approved by: Francois Barnard M.D. on 12/06/2022 at 14:16
== END ==
PROVIDERS: PCP Nurse Practitioner; Referring Provider Physical Medicine & Rehabilitation; Visit Provider Physical Medicine & Rehabilitation
DX: M50.321 Other cervical disc degeneration at C4-C5 level (principal); M47.812 Spondylosis without myelopathy or radiculopathy, cervical region; M48.062 Spinal stenosis, lumbar region with neurogenic claudication; M51.36 Other intervertebral disc degeneration, lumbar region; M47.816 Spondylosis without myelopathy or radiculopathy, lumbar region; M48.02 Spinal stenosis, cervical region; E04.1 Nontoxic single thyroid nodule
CPT/HCPCS: 72141; 72148

== ENCOUNTER → 2023-01-07 10:05 | Outpatient (CLI) | payer MEDICARE, BC, SELFPAY | PROVIDERS: PCP Nurse Practitioner; Referring Provider Physician Assistant Medical; Visit Provider Physician Assistant Medical | DX: N39.0 Urinary tract infection, site not specified (principal); R31.9 Hematuria, unspecified | CPT/HCPCS: 87077; 87086; 87186 ==

== ENCOUNTER → 2023-01-11 09:45 | Outpatient (CLI) | payer MEDICARE, BC, SELFPAY ==
[2023-01-11 19:50] LABS: Alanine Aminotransferase 21 IU/L (<35); Albumin 4.2 g/dL (3.5-5.0); Albumin Globulin Ratio 1.3 (1.0-2.8); Alkaline Phosphatase 66 U/L (38-126); Amylase 57 U/L (30-110); Aspartate Aminotransferase 25 IU/L (14-36); BUN Creatinine Ratio 31.7 (6-22); Bilirubin Total 0.6 mg/dL (0.2-1.3); Blood Urea Nitrogen 19 mg/dL (7-17); Calcium 9.6 mg/dL (8.4-10.2); Carbon Dioxide 31 mmol/L (22-32); Chloride 100 mmol/L (98-107); Estimated Glomerular Filt Rate > 60 mL/min (>60); Globulin 3.3 g/dL (1.7-4.1); Glucose 96 mg/dL (80-110); HEMOLYSIS < 15 (0-50); Lipase 155 U/L (23-300); Potassium 4.5 mmol/L (3.4-5.1); Sodium 136 mmol/L (137-145); Total Protein 7.5 g/dL (6.3-8.2)
[2023-01-11 19:59] LABS: Add Manual Diff / Slide Review NO; Basophils Absolute Auto 100 /uL (0-100); Basophils Percent Auto 0.7 % (0-2); Eosinophils Absolute Auto 100 /uL (0-450); Eosinophils Percent Auto 1.3 % (2-4); Hematocrit 40.4 % (36-46); Hemoglobin 13.9 g/dL (12.0-16.0); Lymphocytes Absolute Auto 2200 /uL (1100-4500); Lymphocytes Percent Auto 26.8 % (25-40); Mean Corpuscular HGB Conc 34.5 % (30-36); Mean Corpuscular Hemoglobin 32.7 PG (26-34); Mean Corpuscular Volume 94.9 fL (80-100); Monocytes Absolute Auto 800 /uL (0-900); Monocytes Percent Auto 10.1 % (3-14); Neutrophils Absolute Auto 4900 /uL (1500-7000); Neutrophils Percent Auto 61.1 % (50-75); Platelet Count 314 X10^3/uL (150-400); Red Blood Cell Count 4.25 X10^6/uL (4.0-5.2); White Blood Cell Count 8.1 X10^3/uL (4.5-11.0)
== END ==
PROVIDERS: PCP Nurse Practitioner; Visit Provider Physician Assistant
DX: M85.80 Other specified disorders of bone density and structure, unspecified site (principal); N39.0 Urinary tract infection, site not specified; R10.9 Unspecified abdominal pain; R31.9 Hematuria, unspecified
CPT/HCPCS: 80053; 82150; 83690; 85025; 87086

== ENCOUNTER → 2023-01-27 12:49 | Outpatient (CLI) | payer MEDICARE, BC, SELFPAY | PROVIDERS: PCP Nurse Practitioner; Visit Provider Nurse Practitioner Family | DX: R30.0 Dysuria (principal); N89.8 Other specified noninflammatory disorders of vagina | CPT/HCPCS: 87077; 87086; 87186; 87210 ==

== ENCOUNTER → 2023-01-30 14:15 | Outpatient (CLI) | payer MEDICARE, BC, SELFPAY | PROVIDERS: PCP Nurse Practitioner; Visit Provider Nurse Practitioner Family | DX: R10.9 Unspecified abdominal pain (principal) | CPT/HCPCS: 87086 ==

== ENCOUNTER → 2023-02-01 15:29 | Outpatient (CLI) | payer MEDICARE, BC, SELFPAY | PROVIDERS: PCP Nurse Practitioner; Visit Provider Family Medicine | DX: N39.0 Urinary tract infection, site not specified (principal); R10.9 Unspecified abdominal pain | CPT/HCPCS: 87086 ==

== ENCOUNTER 2023-02-14 14:40 | Emergency (ER) | payer MEDICARE, BC, SELFPAY ==
[2023-02-14] VITALS (11 sets, daily range): BP systolic 178–225; BP diastolic 72–87; PULSE 63–89; RESP 10–34; TEMP 36.8; O2SAT 97–99; BMI 25.8
--- NOTE | 2023-02-14 14:56 | DI.RAD.S_ITS ---
PROCEDURE: XR CHEST 1V INDICATIONS: chest pain TECHNIQUE: One view of the chest was acquired. COMPARISON: [facility], CR, XR CHEST 2V, 11/12/2022, 9:12. FINDINGS: Surgical changes and devices: None. Lungs and pleura: Lungs are clear. No pleural effusions or pneumothorax. Mediastinum: Mediastinal contours appear normal. Heart size is normal. Bones and chest wall: No suspicious bony lesions. Overlying soft tissues appear unremarkable. IMPRESSION: No acute process. Dictated by: Anastasiya Buenrostro M.D. on 02/14/2023 at 16:13 Approved by: Anastasiya Buenrostro M.D. on 02/14/2023 at 16:13
[2023-02-14 15:19] LABS: Add Manual Diff / Slide Review NO; Basophils Absolute Auto 100 /uL (0-100); Basophils Percent Auto 1.2 % (0-2); Eosinophils Absolute Auto 100 /uL (0-450); Eosinophils Percent Auto 0.8 % (2-4); Hematocrit 41.4 % (36-46); Hemoglobin 14.6 g/dL (12.0-16.0); Lymphocytes Absolute Auto 2500 /uL (1100-4500); Lymphocytes Percent Auto 29.6 % (25-40); Mean Corpuscular HGB Conc 35.3 % (30-36); Mean Corpuscular Hemoglobin 32.9 PG (26-34); Mean Corpuscular Volume 93.4 fL (80-100); Monocytes Absolute Auto 700 /uL (0-900); Monocytes Percent Auto 8.5 % (3-14); Neutrophils Absolute Auto 5100 /uL (1500-7000); Neutrophils Percent Auto 59.9 % (50-75); Platelet Count 320 X10^3/uL (150-400); Red Blood Cell Count 4.44 X10^6/uL (4.0-5.2); Red Cell Distribution Width 13.5 % (11.6-14.8); White Blood Cell Count 8.5 X10^3/uL (4.5-11.0)
[2023-02-14 15:54] LABS: INR 0.9 (0.9-1.3); Prothrombin Time 10.7 SECONDS (10.1-12.7)
[2023-02-14 15:57] LABS: Alanine Aminotransferase 26 IU/L (<35); Albumin 4.4 g/dL (3.5-5.0); Albumin Globulin Ratio 1.2 (1.0-2.8); Alkaline Phosphatase 65 U/L (38-126); Aspartate Aminotransferase 28 IU/L (14-36); BUN Creatinine Ratio 22.2 (6-22); Bilirubin Total 0.5 mg/dL (0.2-1.3); Blood Urea Nitrogen 14 mg/dL (7-17); Calcium 9.8 mg/dL (8.4-10.2); Carbon Dioxide 27 mmol/L (22-32); Chloride 101 mmol/L (98-107); Creatine Kinase 71 U/L (30-135); Estimated Glomerular Filt Rate > 60 mL/min (>60); Globulin 3.6 g/dL (1.7-4.1); Glucose 97 mg/dL (80-110); HEMOLYSIS < 15 (0-50); Lipase 99 U/L (23-300); Magnesium 1.9 mg/dL (1.6-2.3); PTT Partial Thromboplastin Tim 30 SECONDS (26-36); Potassium 3.7 mmol/L (3.4-5.1); Sodium 136 mmol/L (137-145)
[2023-02-14 16:08] LABS: Troponin I < 0.012 ng/mL (0.01-0.034)
[2023-02-14 16:36] LABS: Bacteria Urine Moderate (10-30); Culture Indicated Urine Specimen Cultured; RBC Urine 0-1/HPF (0-5/HPF); Squamous Epithelial Cell Urine 1-5 /HPF (0-5/HPF); WBC Urine 30-100/HPF (0-5/HPF)
[2023-02-14 18:26] LABS: Troponin I < 0.012 ng/mL (0.01-0.034)
--- NOTE | 2023-02-14 18:46 | PC.NURSE ---
Pt ambulated to bathroom with steady gait. Reports ongoing chronic neck pain, denies dizziness or other concerning symptoms.
--- NOTE | 2023-02-14 18:48 | ED_ITS ---
HPI - General Adult General Chief complaint: Dizziness Stated complaint: chest pains/ pressure, arm pain, weak Time Seen by Provider: 02/14/23 18:04 Source: patient Mode of arrival: Wheelchair History of Present Illness HPI narrative: 82-year-old female nonsmoker with history of polymyalgia rheumatica, paresthesias, pulmonary nodules, autoimmune disorder, frequent UTIs presents with a chief complaint of left arm pain, chest pressure, dizziness and upper right back pain. She states that she noticed pain in her left arm upon waking yesterday and denies any injury or history of the same. She states that it is rather sharp and stabbing and seems to be worse with palpation and motion. She denies any numbness or tingling. She denies any overuse. She is had no redness or swelling and denies any recent IVs or other procedures on her arm. She states that she had some chest pressure yesterday and today without obvious provocation, palliation or radiation. She denies exertional symptoms. She denies shortness of breath, nausea or vomiting. She has urinary complaints including dysuria, frequency and urgency, she states that she is been dealing with frequent UTIs and has a prescription for cefdinir at home, she took her 1st dose today and has enough to get her through a full course. She denies abdominal pain or back pain. Related Data Home Medications Medication Instructions Recorded Confirmed ezetimibe 10 mg tablet (Zetia) 20 mg PO Q DAY ##0 02/03/10 02/08/23 losartan 50 mg-hydrochlorothiazide 1 tab PO DAILY 12/06/17 02/08/23 12.5 mg tablet cranberry extract 200 mg capsule 200 mg PO DAILY 03/15/19 02/08/23 (Ellura) acetaminophen 500 mg tablet 1,000 mg PO QID PRN 12/12/19 02/08/23 (Tylenol Extra Strength) gabapentin 100 mg capsule 200 mg PO BEDTIME 11/02/22 02/08/23 amlodipine 2.5 mg tablet 2.5 mg PO DAILY 01/11/23 02/08/23 estradiol 10 mcg vaginal tablet 10 mcg vaginal 2XW 01/11/23 02/08/23 methocarbamol 500 mg tablet 1,000 mg PO BID 01/11/23 02/08/23 Previous Rx's Medication Instructions Recorded baclofen 5 mg tablet 10 mg PO BEDTIME PRN muscle spasm 11/02/22 #60 tabs cefdinir 300 mg capsule 300 mg PO BID #6 caps 01/30/23 Allergies Allergy/AdvReac Type Severity Reaction Status Date / Time No Known Drug Allergies Allergy Verified 02/14/23 14:49 Review of Systems Review of Systems Narrative: GENERAL: Denies chills, fatigue, malaise, fever, sweats. HEENT: Denies sinus pain, ear pain, sore throat, difficulty swallowing, dizziness. RESPIRATORY: Denies dyspnea, cough, wheezing, hemoptysis, sputum. CARDIOVASCULAR: See HPI GASTROINTESTINAL: Denies nausea, vomiting, abdominal pain, diarrhea, constipation, melena. : See HPI MUSCULOSKELETAL: See HPI SKIN: Denies rash, skin lesions, or other NEUROLOGIC: See HPI PSYCHIATRIC: No concerning psychosocial issues. 12 point review of systems is negative except for those stated above Patient History Medical History Abnormal chest x-ray (~2018) Autoimmune disorder Carpal tunnel syndrome Cervical radiculopathy Chicken pox Chronic back pain Chronic insomnia Colitis (~2013) Colon polyps (~2000) Diverticulitis Fibroids Fractures Frequent UTI (~2013) Hemorrhoid Hyperlipidemia Hypertension Keratoacanthoma of lower leg Lower back pain Lumbar radiculopathy, chronic Measles Midline cystocele Mumps Neck pain Neuropathic pain Osteopenia Other specified epidermal thickening Other spondylosis with radiculopathy, lumbar region Paresthesia of hand, bilateral Pessary maintenance Polymyalgia rheumatica Presence of pessary Pulmonary nodules/lesions, multiple Shoulder pain Skin cancer (~2014) Skin sore Thyroid nodule Vision disorder Surgical History Anesthesia Cataracts, bilateral (~2009) History of knee surgery Status post appendectomy Status post vaginal hysterectomy (~2013) Family History Father Cancer Mother No problems noted. Family/Other No problems noted. Social History Smoking Status: Never smoker alcohol intake: current Smoking Status: Never smoker alcohol intake frequency: a few times a week Substance Use Type: does not use Exam Narrative Exam Narrative: GENERAL: [82] year old patient appears stated age. Well-developed patient, in mild distress. HEAD: Atraumatic. Normocephalic. EYES: Pupils equal round and reactive. Extraocular motions intact. No scleral icterus. No injection or drainage. ENT: Nose without bleeding, purulent drainage. Throat without erythema, tonsillar hypertrophy or exudate. Airway patent. NECK: Trachea midline. No bony tenderness, no change with axial load, there is some tenderness to palpation of the left-sided paraspinal musculature, no measurable upper extremity numbness or weakness. No redness or swelling CARDIOVASCULAR: Regular rate and rhythm without murmurs, gallops, or rubs. Deep breath seems to elicit the chest pressure that she complains of RESPIRATORY: Clear to auscultation. Breath sounds equal bilaterally. No wheezes, rales, or rhonchi. GASTROINTESTINAL: Abdomen soft, non-tender, nondistended. EXTREMITIES: No numbness, tingling or measurable weakness. Pain on medial aspect of left upper extremity, no obvious redness, warmth or swelling BACK: Nontender without deformity or crepitance. No flank tenderness. NEURO: AOx3. SKIN: No rash or erythema of visible areas Initial Vital Signs Initial Vital Signs: Vital Signs Temperature 98.3 F 02/14/23 14:49 Pulse Rate 89 02/14/23 14:49 Respiratory Rate 18 02/14/23 14:49 Blood Pressure 187/83 H 02/14/23 14:49 Pulse Oximetry 98 02/14/23 14:49 Oxygen Delivery Method Room Air 02/14/23 14:49 Course Orders Ordered: Discontinued Medications Amlodipine Besylate (Amlodipine 5 Mg Tablet) 5 mg PO NOW ONE Stop: 02/14/23 18:57 Last Admin: 02/14/23 19:07 Dose: 5 mg Documented By: Aspirin (Aspirin 81 Mg Chew Tab) 324 mg PO NOW ONE Stop: 02/14/23 14:57 Last Admin: 02/14/23 16:46 Dose: Not Given Documented By: PEDRO LUIS Vital Signs Vital signs: Vital Signs - 8 hr 02/14/23 14:49 02/14/23 17:50 02/14/23 17:53 Temperature 98.3 F Pulse Rate 89 66 Respiratory Rate 18 23 Blood Pressure 187/83 H 209/77 H 195/87 H Pulse Oximetry 98 99 Oxygen Delivery Method Room Air 02/14/23 17:53 02/14/23 18:00 02/14/23 18:00 Temperature Pulse Rate 67 64 Respiratory Rate 28 H 34 H Blood Pressure 185/83 H Pulse Oximetry 98 98 Oxygen Delivery Method 02/14/23 18:30 02/14/23 18:31 02/14/23 18:31 Temperature Pulse Rate 63 66 Respiratory Rate 24 27 H Blood Pressure 209/80 H Pulse Oximetry 98 98 Oxygen Delivery Method Medical Decision Making Lab Data 02/14/23 15:01 02/14/23 15:36 Labs: Lab Results 02/14/23 02/14/23 02/14/23 Range/Units 15:01 15:36 15:36 WBC 8.5 (4.5-11.0) X10^3/uL RBC 4.44 (4.0-5.2) X10^6/uL Hgb 14.6 (12.0-16.0) g/dL Hct 41.4 (36-46) % MCV 93.4 (80-100) fL MCH 32.9 (26-34) PG MCHC 35.3 (30-36) % RDW 13.5 (11.6-14.8) % Plt Count 320 (150-400) X10^3/uL Neut % (Auto) 59.9 (50-75) % Lymph % (Auto) 29.6 (25-40) % [place] % (Auto) 8.5 (3-14) % Eos % (Auto) 0.8 L (2-4) % Baso % (Auto) 1.2 (0-2) % Neut # (Auto) 5100 (5830-9998) /uL Lymph # (Auto) 2500 (9121-3019) /uL [place] # (Auto) 700 (0-900) /uL Eos # (Auto) 100 (0-450) /uL Baso # (Auto) 100 (0-100) /uL PT 10.7 (10.1-12.7) SECONDS INR 0.9 (0.9-1.3) APTT 30 (26-36) SECONDS D-Dimer (<500) ng/ml Sodium 136 L (137-145) mmol/L Potassium 3.7 (3.4-5.1) mmol/L Chloride 101 (98-107) mmol/L Carbon Dioxide 27 (22-32) mmol/L BUN 14 (7-17) mg/dL Creatinine 0.63 (0.52-1.04) mg/dL Estimated GFR > 60 (>60) mL/min BUN/Creatinine Ratio 22.2 H (6-22) Glucose 97 (80-110) mg/dL Calcium 9.8 (8.4-10.2) mg/dL Magnesium 1.9 (1.6-2.3) mg/dL Total Bilirubin 0.5 (0.2-1.3) mg/dL AST 28 (14-36) IU/L ALT 26 (<35) IU/L Alkaline Phosphatase 65 (38-126) U/L Total Creatine Kinase 71 (30-135) U/L Troponin I < 0.012 (0.01-0.034) ng/mL Total Protein 8.0 (6.3-8.2) g/dL Albumin 4.4 (3.5-5.0) g/dL Globulin 3.6 (1.7-4.1) g/dL Albumin/Globulin Ratio 1.2 (1.0-2.8) Lipase 99 (23-300) U/L Urine RBC (0-5/HPF) Urine WBC (0-5/HPF) Ur Squamous Epith Cells (0-5/HPF) Urine Bacteria (None) Ur Culture Indicated? 02/14/23 02/14/23 02/14/23 Range/Units 15:36 15:51 17:53 WBC (4.5-11.0) X10^3/uL RBC (4.0-5.2) X10^6/uL Hgb (12.0-16.0) g/dL Hct (36-46) % MCV (80-100) fL MCH (26-34) PG MCHC (30-36) % RDW (11.6-14.8) % Plt Count (150-400) X10^3/uL Neut % (Auto) (50-75) % Lymph % (Auto) (25-40) % [place] % (Auto) (3-14) % Eos % (Auto) (2-4) % Baso % (Auto) (0-2) % Neut # (Auto) (8485-8865) /uL Lymph # (Auto) (9809-5850) /uL [place] # (Auto) (0-900) /uL Eos # (Auto) (0-450) /uL Baso # (Auto) (0-100) /uL PT (10.1-12.7) SECONDS INR (0.9-1.3) APTT (26-36) SECONDS D-Dimer 718 H (<500) ng/ml Sodium (137-145) mmol/L Potassium (3.4-5.1) mmol/L Chloride (98-107) mmol/L Carbon Dioxide (22-32) mmol/L BUN (7-17) mg/dL Creatinine (0.52-1.04) mg/dL Estimated GFR (>60) mL/min BUN/Creatinine Ratio (6-22) Glucose (80-110) mg/dL Calcium (8.4-10.2) mg/dL Magnesium (1.6-2.3) mg/dL Total Bilirubin (0.2-1.3) mg/dL AST (14-36) IU/L ALT (<35) IU/L Alkaline Phosphatase (38-126) U/L Total Creatine Kinase (30-135) U/L Troponin I < 0.012 (0.01-0.034) ng/mL Total Protein (6.3-8.2) g/dL Albumin (3.5-5.0) g/dL Globulin (1.7-4.1) g/dL Albumin/Globulin Ratio (1.0-2.8) Lipase (23-300) U/L Urine RBC 0-1/hpf (0-5/HPF) Urine WBC 30-100/hpf H (0-5/HPF) Ur Squamous Epith Cells 1-5 /hpf (0-5/HPF) Urine Bacteria Moderate (10-30) H (None) Ur Culture Indicated? Specimen cultured Urine Dip Bedside Urine Glucose Negative Bedside Urine Bilirubin - Negative Bedside Urine Ketone - Negative Urine Specific [place] 1.010 Bedside Urine Occult Blood - Negative Bedside Urine pH 7.0 Bedside Urine Protein - Negative Bedside Urine Urobilinogen - Negative Bedside Urine Nitrite - Negative Bedside Urine Leukocytes + 70 Esterase Point of care testing: Urine Dip Bedside Urine Glucose Negative Bedside Urine Bilirubin - Negative Bedside Urine Ketone - Negative Urine Specific [place] 1.010 Bedside Urine Occult Blood - Negative Bedside Urine pH 7.0 Bedside Urine Protein - Negative Bedside Urine Urobilinogen - Negative Bedside Urine Nitrite - Negative Bedside Urine Leukocytes + 70 Esterase MDM Narrative Medical decision making narrative: CC: 82-year-old female with multiple complaints, most notably left arm pain in the absence of injury, urinary complaints and pleuritic-type chest pressure. Complicating co-morbidities: Age, pulmonary nodules, frequent UTIs Data collected from: Patient Medical records reviewed: Prior notes reviewed in our EMR Differential considered, but not limited to: Cardiac ischemia versus pulmonary embolism versus pneumonia versus dissection versus cellulitis versus DVT versus UTI versus other Exam documented above, pertinent findings include: Heart rate regular, lungs clear to auscultation. Deep breath obviously worsens the chest pressure that brought her in. Left upper extremity without obvious redness or swelling, no warmth, fluctuance or induration. No measurable numbness or weakness Lab Test results independently reviewed as above. Pertinent findings: No leukocytosis or left shift, no signs of anemia, primarily electrolytes and renal function within normal limits, troponin negative x2. Independently reviewed EKG as above Imaging studies independently reviewed: Chest x-ray without acute process, left upper extremity ultrasound without evidence of DVT Treatments: Aspirin and amlodipine Re-evaluations: Patient resting comfortably, no significant distress, Discussion: Patient with multiple symptoms, many of which appear to be chronic but include occasional dizziness and neck pain with radiation into her arms, left arm pain, episodes of chest pain. Multiple diagnoses considered as noted above. Cardiac ischemia thought unlikely given low risk features, nonischemic EKG, troponins negative. Left upper extremity pain considered most likely to be an inflammatory process given its reproducibility on palpation and recruitment of musculature. No redness or warmth to suggest infection, no fever, chills, induration or fluctuance. No lymphangitis. Ultrasound ordered and DVT thought unlikely given lack of findings. Pulmonary embolism considered but thought unlikely given D-dimer below age corrected cutoff. Disposition: see below, along with detailed discharge instructions that have been reviewed with patient as well as indications for ED re-evaluation and additional outpatient follow up Discharge Plan Departure Patient Disposition: Home Clinical Impression: Arm pain, left, Chest pain, atypical Instructions: DI for Atypical Chest Pain, DI for Arm Pain Activity Restrictions/Additional Instructions: *You have been diagnosed with [atypical chest pain and left arm pain. As we discussed there is no evidence of heart attack, blood clot or pneumonia. Additionally there is no suggestion of infection or blood clot of your left upper extremity.] *What to do: *Please continue to take your regular medications as directed. [ ] New medication prescriptions sent to your pharmacy: [ ] [ ] New medication written as a paper prescription [ ] No new medications given *Please follow up with your primary care provider in 2-3 days, call for an appointment. Let them know you were seen in the Emergency Department and that we ask that you be seen in follow up. We will electronically transmit a record of today's note if your PCP is in our system *If you do not have a primary care provider please contact the [facility] Resource line at [phone]. They will ask some questions about your medical history and help get you set up with a doctor in the community. *Return to Emergency Department if you should have any new, worsening or concerning symptoms, such as [fever greater than 101 F, shaking chills, worsening pain, persistent vomiting or other bothersome symptoms] Prescriptions: No Action losartan-hydrochlorothiazide 50-12.5 mg tablet 1 tab PO DAILY cefdinir 300 mg capsule 300 mg PO BID Qty: 6 0RF ezetimibe [Zetia] 10 MG tablet 20 mg PO Q DAY Qty: 0 gabapentin 100 mg capsule 200 mg PO BEDTIME baclofen 5 mg tablet 10 mg PO BEDTIME PRN (Reason: muscle spasm) Qty: 60 0RF Rx Instructions: Take 5-10mg at bedtime daily for muscle spasms and pain cranberry extract [Ellura] 200 mg capsule 200 mg PO DAILY amlodipine 2.5 mg tablet 2.5 mg PO DAILY estradiol 10 mcg tablet 10 mcg vaginal 2XW methocarbamol 500 mg tablet 1,000 mg PO BID acetaminophen [Tylenol Extra Strength] 500 mg tablet 1,000 mg PO QID PRN Referrals: Estefania Mcfarlane ARNP [Primary Care Provider] - Stand Alone Forms: Patient Portal/API
--- NOTE | 2023-02-14 18:56 | DI.US.S_ITS ---
PROCEDURE: US PERIPH VENOUS UP EXTREM LT INDICATIONS: PAIN. NO INJURY. TECHNIQUE: Real-time imaging, as well as color and pulse Doppler interrogation, was performed of the left upper upper extremity deep veins from the inferior neck to the antecubital fossa. COMPARISON: None. FINDINGS: The internal jugular vein, visualized portions of the subclavian vein, axillary, and brachial veins are free of intraluminal thrombus. Where physically possible, the veins are normally compressible. Color and pulse Doppler demonstrate normal intraluminal flow, with expected phasicity and pulsatility. Additional scanning of the cephalic and basilic veins of the superficial system demonstrates normal compressibility, without thrombus. IMPRESSION: No findings of upper extremity deep venous thrombosis can be seen. Dictated by: Jyoti Hoskins M.D. on 02/14/2023 at 20:09 Approved by: Jyoti Hoskins M.D. on 02/14/2023 at 20:09
[2023-02-14] MEDS: AMLODIPINE 5 MG TABLET PO (19:07)
[2023-02-14 19:10] LABS: D Dimer 718 ng/ml (<500)
== END 2023-02-14 20:31 | disposition home or self-care (01) ==
PROVIDERS: Emergency Medicine; Emergency Provider Emergency Medicine; PCP Nurse Practitioner
DX: R07.89 Other chest pain (principal); M79.602 Pain in left arm; R42 Dizziness and giddiness; M54.6 Pain in thoracic spine
CPT/HCPCS: 36415; 71045; 80053; 81003; 81015; 82550; 83690; 83735; 84484; 85025; 85379; 85610; 85730; 87077; 87086; 87186; 93005; 93010; 93971; 99284

== ENCOUNTER → 2023-02-15 09:29 | Outpatient (CLI) | payer MEDICARE, BC, SELFPAY ==
--- NOTE | 2023-02-15 11:06 | DI.CT.S_ITS ---
PROCEDURE: CT ABDOMEN PELVIS W CON INDICATIONS: lower abdominal pain/multiple UTI TECHNIQUE: After the administration of oral and IV contrast, axial sections were acquired from the lung bases to the pubic symphysis. Coronal and sagittal reformats were performed. For radiation dose reduction, the following was used: automated exposure control, adjustment of mA and/or kV according to patient size. COMPARISON: NM, NM PET CT FUSION SKULL 2 THIGH, 11/19/2020, 9:25. [facility], CT, CT ABDOMEN PELVIS W CON, 12/06/2018, 14:16. [facility], CT, CT ABDOMEN PELVIS W CON, 03/28/2019, 13:53. FINDINGS: Image quality: Excellent. Lung bases: There is a 0.6 cm subsolid nodule in the left lower lobe, unchanged. Heart: No significant findings. ABDOMEN: Liver: Normal size. Mild hepatic steatosis. Gallbladder: Unremarkable. Biliary ducts: Unremarkable. Pancreas: Unremarkable. Spleen: Unremarkable. Adrenal Glands: Bilateral adrenal thickening. Kidneys and Ureters: Unremarkable. Stomach and Bowel: Stomach, small bowel loops, and colon are normal in caliber. Diverticulosis. There is mild thickening of sigmoid colon. Peritoneum: No abnormal intraperitoneal fluid. No free air. Ventral Wall: No hernia. Abdominal Nodes: No retroperitoneal or mesenteric adenopathy by size criteria. Vessels: Aorta and inferior vena cava are normal in size. PELVIS: Pelvic Organs: Hysterectomy. There is a pessary in vagina. Bladder: Unremarkable. Pelvic Nodes: No enlarged lymph nodes. Miscellaneous: No inguinal hernias are seen. Bones: Moderate degenerative disc and facet disease in lumbar spine. Grade 1 anterolisthesis of L5 on S1. IMPRESSION: 1. Diverticulosis. There is thickening of sigmoid colon, likely sequelae of chronic inflammatory responds to diverticular disease. Colon cancer, however, could have a similar CT appearance. Consider colonoscopy after treatment of acute illness. 2. Stable subsolid nodule in the left lower lobe, likely benign. Dictated by: Jyoti Hoskins M.D. on 02/15/2023 at 12:27 Approved by: Jyoti Hoskins M.D. on 02/16/2023 at 7:37
== END ==
PROVIDERS: PCP Nurse Practitioner; Referring Provider Family Medicine; Visit Provider Family Medicine
DX: K76.0 Fatty (change of) liver, not elsewhere classified (principal); R10.9 Unspecified abdominal pain; K57.90 Diverticulosis of intestine, part unspecified, without perforation or abscess without bleeding; N39.0 Urinary tract infection, site not specified; R91.8 Other nonspecific abnormal finding of lung field; D89.89 Other specified disorders involving the immune mechanism, not elsewhere classified; Z87.440 Personal history of urinary (tract) infections; Z87.19 Personal history of other diseases of the digestive system; Z90.710 Acquired absence of both cervix and uterus
CPT/HCPCS: 74177; Q9967

== ENCOUNTER → 2023-02-28 15:41 | Outpatient (CLI) | payer MEDICARE, BC, SELFPAY | PROVIDERS: PCP Nurse Practitioner; Visit Provider Family Medicine | DX: N76.0 Acute vaginitis (principal) | CPT/HCPCS: 87210; 87220 ==

== ENCOUNTER → 2023-03-03 15:20 | Outpatient (CLI) | payer MEDICARE, BC, SELFPAY ==
[2023-03-03 16:40] LABS: Appearance Urine UA CLOUDY; Bilirubin Urine UA NEGATIVE (NEGATIVE); Color Urine UA YELLOW; Glucose Urine UA NEGATIVE (Negative); Ketones Urine UA NEGATIVE (NEGATIVE); Leukocyte Esterase Urine UA 3+ (NEGATIVE); Nitrite Urine UA NEGATIVE (Negative); Occult Blood Urine UA NEGATIVE (Negative); Protein Urine UA NEGATIVE (Negative); Specific Gravity Urine UA 1.015 (1.000-1.035); Urobilinogen Urine UA 0.2 E.U./dL (0.2)
[2023-03-03 16:46] LABS: pH Urine UA 6.5 (4.5-8.0)
[2023-03-03 17:03] LABS: Bacteria Urine Moderate (10-30); RBC Urine 0-1/HPF (0-5/HPF); Squamous Epithelial Cell Urine 10-30 /HPF (0-5/HPF); WBC Urine 10-30/HPF (0-5/HPF)
[2023-03-03 17:04] LABS: Culture Indicated Urine Specimen Cultured; Urine Comments Low Volume (<10mL)
== END ==
PROVIDERS: PCP Nurse Practitioner; Referring Provider Family Medicine; Visit Provider Family Medicine
DX: R39.9 Unspecified symptoms and signs involving the genitourinary system (principal); Z46.89 Encounter for fitting and adjustment of other specified devices
CPT/HCPCS: 81001; 87077; 87086; 87186

== ENCOUNTER 2023-03-11 18:16 | Emergency (ER) | payer MEDICARE, BC, SELFPAY ==
[2023-03-11] VITALS (13 sets, daily range): BP systolic 162–196; BP diastolic 74–90; PULSE 64–85; RESP 16–24; TEMP 36.8–37.1; O2SAT 94–98; BMI 25.8
--- NOTE | 2023-03-11 18:27 | DI.RAD.S_ITS ---
PROCEDURE: XR CHEST 1V INDICATIONS: Chest pain. TECHNIQUE: One view of the chest was acquired. COMPARISON: [facility], CR, XR CHEST 1V, 02/14/2023, 15:38. FINDINGS: Surgical changes and devices: None. Lungs and pleura: Lungs are clear. No pleural effusions or pneumothorax. Mediastinum: Mediastinal contours appear normal. Heart size is normal. Bones and chest wall: No suspicious bony lesions. Overlying soft tissues appear unremarkable. IMPRESSION: No focal infiltrate, pleural effusion or pneumothorax. Dictated by: Jonnie Corona M.D. on 03/11/2023 at 19:52 Approved by: Jonnie Corona M.D. on 03/11/2023 at 19:52
[2023-03-11 19:18] LABS: Add Manual Diff / Slide Review NO; Basophils Absolute Auto 100 /uL (0-100); Basophils Percent Auto 0.9 % (0-2); Eosinophils Absolute Auto 100 /uL (0-450); Eosinophils Percent Auto 0.7 % (2-4); Hemoglobin 14.1 g/dL (12.0-16.0); Lymphocytes Absolute Auto 1800 /uL (1100-4500); Lymphocytes Percent Auto 25.5 % (25-40); Mean Corpuscular HGB Conc 35.3 % (30-36); Mean Corpuscular Hemoglobin 32.7 PG (26-34); Mean Corpuscular Volume 92.7 fL (80-100); Monocytes Absolute Auto 600 /uL (0-900); Monocytes Percent Auto 8.9 % (3-14); Neutrophils Absolute Auto 4600 /uL (1500-7000); Platelet Count 326 X10^3/uL (150-400); Red Blood Cell Count 4.31 X10^6/uL (4.0-5.2); Red Cell Distribution Width 13.1 % (11.6-14.8); White Blood Cell Count 7.2 X10^3/uL (4.5-11.0)
[2023-03-11 19:24] LABS: Prothrombin Time 10.9 SECONDS (10.1-12.7)
[2023-03-11 19:26] LABS: PTT Partial Thromboplastin Tim 31 SECONDS (26-36)
[2023-03-11 19:28] LABS: Alanine Aminotransferase 22 IU/L (<35); Albumin 4.4 g/dL (3.5-5.0); Albumin Globulin Ratio 1.3 (1.0-2.8); Alkaline Phosphatase 62 U/L (38-126); Aspartate Aminotransferase 30 IU/L (14-36); BUN Creatinine Ratio 21.2 (6-22); Bilirubin Total 0.7 mg/dL (0.2-1.3); Blood Urea Nitrogen 11 mg/dL (7-17); Calcium 9.6 mg/dL (8.4-10.2); Carbon Dioxide 28 mmol/L (22-32); Chloride 96 mmol/L (98-107); Creatine Kinase 101 U/L (30-135); Estimated Glomerular Filt Rate > 60 mL/min (>60); Globulin 3.4 g/dL (1.7-4.1); Glucose 97 mg/dL (80-110); HEMOLYSIS 29 (0-50); Lipase 97 U/L (23-300); Magnesium 1.7 mg/dL (1.6-2.3); Potassium 3.3 mmol/L (3.4-5.1); Sodium 130 mmol/L (137-145); Total Protein 7.8 g/dL (6.3-8.2)
[2023-03-11] MEDS: SODIUM CHLORIDE 0.9% 1,000 ML 1000 ML IV (19:37)
[2023-03-11] MEDS: ACETAMINOPHEN 325 MG TABLET 650 MG PO (19:38)
[2023-03-11 19:39] LABS: Troponin I < 0.012 ng/mL (0.01-0.034)
--- NOTE | 2023-03-11 19:50 | ED_ITS ---
HPI - SOB/Dyspnea General Chief Complaint: Shortness of Breath/Dyspnea Stated Complaint: COVID+/High BP Time Seen by Provider: 03/11/23 19:38 Source: patient Mode of arrival: Ambulatory History of Present Illness HPI Narrative: Patient 82-year-old history of hypertension polymyalgia rheumatica, paresthesias pulmonary nodules autoimmune disorder frequent UTIs presenting today with generally not feeling well. It as though she had a home COVID test or tested positive for COVID at some point started Paxlovid yesterday she is had 3 doses she still does not feel very well. She is also taking Macrobid for presumed UTI. However today she is here with abdominal pain. She has nausea but no vomiting she does not really have any shortness of breath but has general fatigue and not feeling well. Related Data Home Medications Medication Instructions Recorded Confirmed ezetimibe 10 mg tablet (Zetia) 20 mg PO Q DAY ##0 02/03/10 02/28/23 losartan 50 mg-hydrochlorothiazide 1 tab PO DAILY 12/06/17 02/28/23 12.5 mg tablet cranberry extract 200 mg capsule 200 mg PO DAILY 03/15/19 02/28/23 (Ellura) acetaminophen 500 mg tablet 1,000 mg PO QID PRN 12/12/19 02/28/23 (Tylenol Extra Strength) gabapentin 100 mg capsule 200 mg PO BEDTIME 11/02/22 02/28/23 amlodipine 2.5 mg tablet 2.5 mg PO DAILY 01/11/23 02/28/23 estradiol 10 mcg vaginal tablet 10 mcg vaginal 2XW 01/11/23 02/28/23 methocarbamol 500 mg tablet 1,000 mg PO BID 01/11/23 02/28/23 Previous Rx's Medication Instructions Recorded amoxicillin 875 mg-potassium 1 tab PO BID #10 tabs 03/03/23 clavulanate 125 mg tablet baclofen 5 mg tablet 10 mg (2 x 5 mg) PO BEDTIME PRN 03/03/23 muscle spasm #60 tabs nitrofurantoin 100 mg PO DAILY 30 days #30 caps 03/06/23 monohydrate/macrocrystals 100 mg capsule nirmatrelvir 300 mg (150 mg See Rx Instructions PO .COMPLEX 03/10/23 x2)-ritonavir 100 mg tablet,dose #30 ea pack (Paxlovid) ciprofloxacin HCl 500 mg tablet 500 mg PO BID #14 tabs 03/11/23 (Cipro) metronidazole 500 mg tablet 500 mg PO Q8H 7 days #21 tabs 03/11/23 ondansetron 4 mg disintegrating 4 mg PO Q8H PRN nausea and 03/11/23 tablet vomiting #20 tabs Allergies Allergy/AdvReac Type Severity Reaction Status Date / Time No Known Drug Allergies Allergy Verified 03/11/23 18:29 Review of Systems Review of Systems ROS Unobtainable: All systems reviewed & are unremarkable except as noted in HPI and below Patient History Medical History Pessary maintenance Polymyalgia rheumatica Carpal tunnel syndrome Skin sore Paresthesia of hand, bilateral Pulmonary nodules/lesions, multiple Autoimmune disorder Thyroid nodule Lumbar radiculopathy, chronic Cervical radiculopathy Other spondylosis with radiculopathy, lumbar region Chronic insomnia Lower back pain Neck pain Neuropathic pain Vision disorder Abnormal chest x-ray (~2018) Shoulder pain Osteopenia Fractures Chronic back pain Mumps Measles Chicken pox Fibroids Frequent UTI (~2013) Hemorrhoid Colon polyps (~2000) Colitis (~2013) Skin cancer (~2014) Diverticulitis Other specified epidermal thickening Presence of pessary Midline cystocele Keratoacanthoma of lower leg Hyperlipidemia Hypertension Surgical History Anesthesia History of knee surgery Cataracts, bilateral (~2009) Status post appendectomy Status post vaginal hysterectomy (~2013) Family History Father Cancer Mother No problems noted. Family/Other No problems noted. Social History Smoking Status: Never smoker alcohol intake: current Smoking Status: Never smoker alcohol intake frequency: a few times a week Substance Use Type: does not use Exam Initial Vital Signs Initial Vital Signs: Vital Signs Pulse Rate 83 03/11/23 18:23 Pulse Oximetry 97 03/11/23 18:23 GENERAL: Alert well-appearing 82-year-old female well-nourished] and in no distress. HEENT: Head atraumatic,EOMI, pupils reactive, face symmetric, moist mucous membranes CARDIOVASCULAR: Regular rate and rhythm without murmurs, rubs or gallops. RESPIRATORY: Breath sounds equal bilaterally, no wheezes rales or rhonchi. ABDOMEN: Soft, mildly tender no localized tenderness no guarding no rebound EXTREMITIES: Normal range of motion, no clubbing or edema. Neurovascularly intact NEUROLOGICAL: Alert and oriented x4.Normal gait and speech. SKIN: Warm, dry, no laceration, no petechiae, no rashes or lesions. Course Orders Ordered: ED Orders 03/11/23 19:00 Complete Blood Count AUTO DIFF Stat Comprehensive Metabolic Panel Stat Lipase Stat Magnesium Stat PTT Partial Thromboplastin Francisco Stat Prothrombin Time INR Stat Troponin & CK Cardiac Panel Stat 03/11/23 19:30 COVID19 -Nasal RAPID Stat 03/11/23 19:50 Urine Culture Stat Urine Microscopic Stat 03/11/23 20:00 CT abdomen pelvis w con Stat Discontinued Medications Acetaminophen (Acetaminophen 325 Mg Tablet) 650 mg PO NOW ONE Stop: 03/11/23 18:38 Last Admin: 03/11/23 19:38 Dose: 650 mg Documented By: MANUEL Ciprofloxacin (Ciprofloxacin 250 Mg Tablet) 500 mg PO NOW ONE Stop: 03/11/23 21:53 Last Admin: 03/11/23 22:06 Dose: 500 mg Documented By: MANUEL Sodium Chloride (Normal Saline 0.9%) 1,000 mls @ 1,000 mls/hr IV BOLUS ONE Stop: 03/11/23 19:36 Last Infusion: 03/11/23 21:30 Dose: Infused Documented By: Admin: 03/11/23 19:37 Dose: 1,000 mls/hr Documented By: MANUEL Ketorolac Tromethamine (Ketorolac 30 Mg/Ml Vial) 15 mg IV NOW ONE Stop: 03/11/23 20:07 Last Admin: 03/11/23 20:07 Dose: 15 mg Documented By: MANUEL Metronidazole (Metronidazole 500 Mg Tablet) 500 mg PO NOW ONE Stop: 03/11/23 21:53 Last Admin: 03/11/23 22:06 Dose: 500 mg Documented By: MANUEL Ondansetron HCl (Ondansetron 4 Mg/2 Ml Inj) 4 mg IV NOW ONE Stop: 03/11/23 20:07 Last Admin: 03/11/23 20:09 Dose: Not Given Documented By: MANUEL Vital Signs Vital signs: Vital Signs - 8 hr 03/11/23 19:57 03/11/23 19:57 03/11/23 20:00 Temperature Pulse Rate 68 Respiratory Rate 17 Blood Pressure 162/82 H 196/86 H Pulse Oximetry 98 Oxygen Delivery Method 03/11/23 20:00 03/11/23 20:20 03/11/23 20:20 Temperature Pulse Rate 68 69 Respiratory Rate 22 19 Blood Pressure 190/82 H Pulse Oximetry 98 98 Oxygen Delivery Method Room Air 03/11/23 20:30 03/11/23 20:30 03/11/23 21:00 Temperature Pulse Rate 71 69 Respiratory Rate 24 19 Blood Pressure 194/90 H Pulse Oximetry 98 94 Oxygen Delivery Method 03/11/23 21:01 03/11/23 21:01 03/11/23 21:30 Temperature Pulse Rate 68 64 Respiratory Rate 17 23 Blood Pressure 171/74 H Pulse Oximetry 95 97 Oxygen Delivery Method 03/11/23 21:34 03/11/23 21:34 Temperature 98.8 F Pulse Rate 70 Respiratory Rate 24 Blood Pressure 172/74 H Pulse Oximetry 97 Oxygen Delivery Method Room Air MDM - SOB/Dyspnea Lab Data 03/11/23 19:00 03/11/23 19:00 Labs: Lab Results 03/11/23 03/11/23 03/11/23 Range/Units 19:00 19:30 19:50 WBC 7.2 (4.5-11.0) X10^3/uL RBC 4.31 (4.0-5.2) X10^6/uL Hgb 14.1 (12.0-16.0) g/dL Hct 40.0 (36-46) % MCV 92.7 (80-100) fL MCH 32.7 (26-34) PG MCHC 35.3 (30-36) % RDW 13.1 (11.6-14.8) % Plt Count 326 (150-400) X10^3/uL Neut % (Auto) 64.0 (50-75) % Lymph % (Auto) 25.5 (25-40) % Howell % (Auto) 8.9 (3-14) % Eos % (Auto) 0.7 L (2-4) % Baso % (Auto) 0.9 (0-2) % Neut # (Auto) 4600 (9338-9677) /uL Lymph # (Auto) 1800 (6952-0492) /uL Howell # (Auto) 600 (0-900) /uL Eos # (Auto) 100 (0-450) /uL Baso # (Auto) 100 (0-100) /uL PT 10.9 (10.1-12.7) SECONDS INR 1.0 (0.9-1.3) APTT 31 (26-36) SECONDS Sodium 130 L (137-145) mmol/L Potassium 3.3 L (3.4-5.1) mmol/L Chloride 96 L (98-107) mmol/L Carbon Dioxide 28 (22-32) mmol/L BUN 11 (7-17) mg/dL Creatinine 0.52 (0.52-1.04) mg/dL Estimated GFR > 60 (>60) mL/min BUN/Creatinine Ratio 21.2 (6-22) Glucose 97 (80-110) mg/dL Calcium 9.6 (8.4-10.2) mg/dL Magnesium 1.7 (1.6-2.3) mg/dL Total Bilirubin 0.7 (0.2-1.3) mg/dL AST 30 (14-36) IU/L ALT 22 (<35) IU/L Alkaline Phosphatase 62 (38-126) U/L Total Creatine Kinase 101 (30-135) U/L Troponin I < 0.012 (0.01-0.034) ng/mL Total Protein 7.8 (6.3-8.2) g/dL Albumin 4.4 (3.5-5.0) g/dL Globulin 3.4 (1.7-4.1) g/dL Albumin/Globulin Ratio 1.3 (1.0-2.8) Lipase 97 (23-300) U/L Urine RBC 0-1/hpf (0-5/HPF) Urine WBC 5-10/hpf H (0-5/HPF) Ur Squamous Epith Cells None seen D (0-5/HPF) Urine Bacteria None seen (None) Ur Culture Indicated? Specimen cultured SARS-CoV-2 (PCR) Negative (Negative) Urine Dip Bedside Urine Glucose Negative Bedside Urine Bilirubin - Negative Bedside Urine Ketone +++ 80 Urine Specific [place] 1.02 Bedside Urine Occult Blood - Negative Bedside Urine pH 6.0 Bedside Urine Protein - Negative Bedside Urine Urobilinogen - Negative Bedside Urine Nitrite - Negative Bedside Urine Leukocytes +/- 15 Esterase Imaging Data Chest x-ray: Radiologist's Impression: PROCEDURE: XR CHEST 1V INDICATIONS: Chest pain. TECHNIQUE: One view of the chest was acquired. COMPARISON: [facility], CR, XR CHEST 1V, 02/14/2023, 15:38. FINDINGS: Surgical changes and devices: None. Lungs and pleura: Lungs are clear. No pleural effusions or pneumothorax. Mediastinum: Mediastinal contours appear normal. Heart size is normal. Bones and chest wall: No suspicious bony lesions. Overlying soft tissues appear unremarkable. IMPRESSION: No focal infiltrate, pleural effusion or pneumothorax. Dictated by: Jonnie Corona M.D. on 03/11/2023 at 19:52 CT scan - abdomen/pelvis: Radiologist's Impression: PROCEDURE: CT ABDOMEN PELVIS W CON INDICATIONS: Lower abdominal pain. TECHNIQUE: After the administration of intravenous contrast, axial sections acquired from the lung bases to the pubic symphysis. Coronal and sagittal reformats were performed. For radiation dose reduction, the following was used: automated exposure control, adjustment of mA and/or kV according to patient size. COMPARISON: [facility], CT, CT ABDOMEN PELVIS W CON, 02/15/2023, 11:04. FINDINGS: Image quality: Good Lower chest: Basal atelectasis. Left lower lobe lung nodule again seen, better characterized on recent prior chest CT. No pleural effusions. Small hiatal hernia. Overall normal heart size. Solid organs: Gallbladder is unremarkable. Liver is unremarkable. Prominent biliary tree, likely senescent. No pathologic pancreatic ductal dilation. Mild pancreatic parenchymal atrophy. No splenomegaly. Similar adrenal thickening. No hydronephrosis. Subcentimeter lesions, too small to characterize, probably cysts. Vessels and lymph nodes: No abdominal aortic aneurysm. No pathologic lymph nodes by size criteria. The main portal vein appears patent. Bowel and peritoneum: No evidence of small bowel obstruction. Colonic diverticula. Chronic wall thickening of the sigmoid colon again seen. There is mild focal inflammation in the mid sigmoid colon. No abscess or pathologic ascites. Body wall: There is a tiny fat containing umbilical hernia. Pelvis: Postsurgical changes of the bladder. Hysterectomy. Bones: Degenerative changes. No acute or suspicious osseous abnormality. IMPRESSION: Acute on chronic diverticulitis. There is mild inflammation. No abscess. Consider GI follow-up and possible colonoscopy given recurrent episodes. Other findings as above. Dictated by: Miles Rivers M.D. on 03/11/2023 at 20:36 ECG Data Interpretation: Normal sinus rhythm rate 67 TN interval 176 QRS 102 QTC 450 artifact noted no significant ST changes MDM Narrative Medical decision making narrative: Patient is a 82-year-old female who is chronic ongoing UTIs had a positive COVID test presents today with increasing weakness fatigue and abdominal pain. She overall appears well she is not hypoxic vitals are stable. Actually her COVID test here is negative this is unlikely to be from [facility]. Although still possible she has COVID. Blood work has been reviewed she has no significant leukocytosis, she has no evidence of a UTI no evidence of sepsis. She is ambulatory to the ED without any sort of difficulty. CT shows acute on chronic diverticulitis. She would a CT done last month which just showed diverticulosis. No evidence of complication or abscess. Her pain is pretty well controlled this point. No need for admission to day. She is given her 1st dose of Cipro Flagyl. Discharge Plan Departure Patient Disposition: Home Clinical Impression: Diverticulitis Instructions: Diverticulitis, Clear Liquid Diet Activity Restrictions/Additional Instructions: *You have been diagnosed with diverticulitis *What to do: At this time your COVID test is negative you have no evidence of a bladder infection. Your CT does show mild diverticulitis. I think reasonable to start you on antibiotics. Recommend a bland diet may consider clear liquid *Continue to take medications as directed Hold nitrofurantoin, while taking these antibiotics Cipro 500 mg twice a day for 7 days Flagyl 500 mg 3 times a day for 7 days Zofran 4 mg every 8 hours if needed for nausea or vomiting Tylenol 650 mg every 4-6 hours if needed for [id number] pain Motrin 600 mg every 6 hours if needed for [id number] pain *Follow up with your primary care provider in 2-3 days or call [phone] *Return to ER if you should have increasing abdominal pain oxygen less than 90% not tolerating fluids persistent vomiting or any new, worsening or concerning symptoms Prescriptions: New metronidazole 500 mg tablet 500 mg PO Q8H 7 Days Qty: 21 0RF ciprofloxacin HCl [Cipro] 500 mg tablet 500 mg PO BID Qty: 14 0RF ondansetron 4 mg tablet,disintegrating 4 mg PO Q8H PRN (Reason: nausea and vomiting) Qty: 20 0RF No Action losartan-hydrochlorothiazide 50-12.5 mg tablet 1 tab PO DAILY ezetimibe [Zetia] 10 MG tablet 20 mg PO Q DAY Qty: 0 gabapentin 100 mg capsule 200 mg PO BEDTIME baclofen 5 mg tablet 10 mg PO BEDTIME PRN (Reason: muscle spasm) Qty: 60 0RF Rx Instructions: Take 5-10mg at bedtime daily for muscle spasms and pain amoxicillin-pot clavulanate 875-125 mg tablet 1 tab PO BID Qty: 10 0RF nitrofurantoin monohyd/m-cryst 100 mg capsule 100 mg PO DAILY 30 Days Qty: 30 0RF Rx Instructions: must administer with a meal/food Paxlovid 300 mg (150 mg x 2)-100 mg tablets,dose pack See Rx Instructions PO .COMPLEX Qty: 30 0RF Rx Instructions: take TWO 150 mg tablets of nirmatrelvir with ONE 100 mg tablet of ritonavir twice daily for 5 days PO cranberry extract [Ellura] 200 mg capsule 200 mg PO DAILY amlodipine 2.5 mg tablet 2.5 mg PO DAILY estradiol 10 mcg tablet 10 mcg vaginal 2XW methocarbamol 500 mg tablet 1,000 mg PO BID acetaminophen [Tylenol Extra Strength] 500 mg tablet 1,000 mg PO QID PRN Referrals: Estefania Mcfarlane ARNP [Primary Care Provider] - Stand Alone Forms: Patient Portal/API
[2023-03-11] MEDS: ONDANSETRON 4 MG/2 ML INJ (20:00)
--- NOTE | 2023-03-11 20:00 | DI.CT.S_ITS ---
PROCEDURE: CT ABDOMEN PELVIS W CON INDICATIONS: Lower abdominal pain. TECHNIQUE: After the administration of intravenous contrast, axial sections acquired from the lung bases to the pubic symphysis. Coronal and sagittal reformats were performed. For radiation dose reduction, the following was used: automated exposure control, adjustment of mA and/or kV according to patient size. COMPARISON: [facility], CT, CT ABDOMEN PELVIS W CON, 02/15/2023, 11:04. FINDINGS: Image quality: Good Lower chest: Basal atelectasis. Left lower lobe lung nodule again seen, better characterized on recent prior chest CT. No pleural effusions. Small hiatal hernia. Overall normal heart size. Solid organs: Gallbladder is unremarkable. Liver is unremarkable. Prominent biliary tree, likely senescent. No pathologic pancreatic ductal dilation. Mild pancreatic parenchymal atrophy. No splenomegaly. Similar adrenal thickening. No hydronephrosis. Subcentimeter lesions, too small to characterize, probably cysts. Vessels and lymph nodes: No abdominal aortic aneurysm. No pathologic lymph nodes by size criteria. The main portal vein appears patent. Bowel and peritoneum: No evidence of small bowel obstruction. Colonic diverticula. Chronic wall thickening of the sigmoid colon again seen. There is mild focal inflammation in the mid sigmoid colon. No abscess or pathologic ascites. Body wall: There is a tiny fat containing umbilical hernia. Pelvis: Postsurgical changes of the bladder. Hysterectomy. Bones: Degenerative changes. No acute or suspicious osseous abnormality. IMPRESSION: Acute on chronic diverticulitis. There is mild inflammation. No abscess. Consider GI follow-up and possible colonoscopy given recurrent episodes. Other findings as above. Dictated by: Miles Rivers M.D. on 03/11/2023 at 20:36 Approved by: Miles Rivers M.D. on 03/11/2023 at 20:41
[2023-03-11] MEDS: KETOROLAC 30 MG/ML VIAL 15 MG IV (20:07)
[2023-03-11 20:56] LABS: COVID19 -Nasal RAPID Negative (Negative)
[2023-03-11 21:02] LABS: Bacteria Urine None Seen; Culture Indicated Urine Specimen Cultured; RBC Urine 0-1/HPF (0-5/HPF); Squamous Epithelial Cell Urine None Seen (0-5/HPF); WBC Urine 5-10/HPF (0-5/HPF)
[2023-03-11] MEDS: metroNIDAZOLE 500 MG TABLET PO (22:06)
[2023-03-11] MEDS: CIPROFLOXACIN 250 MG TABLET 500 MG PO (22:06)
== END 2023-03-11 22:15 | disposition home or self-care (01) ==
PROVIDERS: Emergency Provider Emergency Medicine; PCP Nurse Practitioner
DX: K57.92 Diverticulitis of intestine, part unspecified, without perforation or abscess without bleeding (principal); R07.9 Chest pain, unspecified; Z86.16 Personal history of COVID-19
CPT/HCPCS: 36415; 71045; 74177; 80053; 81003; 81015; 82550; 83690; 83735; 84484; 85025; 85610; 85730; 87086; 87635; 93005; 96361; 96374; 99284; C9803; J1885; J2405; Q9967

== ENCOUNTER → 2023-03-17 08:45 | Outpatient (CLI) | payer MEDICARE, BC, SELFPAY ==
[2023-03-17 09:51] LABS: Add Manual Diff / Slide Review NO; Basophils Absolute Auto 0 /uL (0-100); Basophils Percent Auto 0.5 % (0-2); Eosinophils Absolute Auto 0 /uL (0-450); Eosinophils Percent Auto 0.4 % (2-4); Hematocrit 41.9 % (36-46); Hemoglobin 14.4 g/dL (12.0-16.0); Lymphocytes Absolute Auto 1600 /uL (1100-4500); Lymphocytes Percent Auto 20.1 % (25-40); Mean Corpuscular HGB Conc 34.4 % (30-36); Mean Corpuscular Hemoglobin 32.3 PG (26-34); Monocytes Absolute Auto 600 /uL (0-900); Monocytes Percent Auto 8.1 % (3-14); Neutrophils Absolute Auto 5500 /uL (1500-7000); Neutrophils Percent Auto 70.9 % (50-75); Platelet Count 346 X10^3/uL (150-400); Red Blood Cell Count 4.46 X10^6/uL (4.0-5.2); Red Cell Distribution Width 13.2 % (11.6-14.8); White Blood Cell Count 7.8 X10^3/uL (4.5-11.0)
[2023-03-17 10:01] LABS: Alanine Aminotransferase 31 IU/L (<35); Albumin 4.3 g/dL (3.5-5.0); Albumin Globulin Ratio 1.5 (1.0-2.8); Alkaline Phosphatase 61 U/L (38-126); Aspartate Aminotransferase 32 IU/L (14-36); BUN Creatinine Ratio 16.9 (6-22); Bilirubin Total 0.3 mg/dL (0.2-1.3); Blood Urea Nitrogen 11 mg/dL (7-17); Calcium 10.1 mg/dL (8.4-10.2); Carbon Dioxide 28 mmol/L (22-32); Chloride 99 mmol/L (98-107); Estimated Glomerular Filt Rate > 60 mL/min (>60); Globulin 2.9 g/dL (1.7-4.1); Glucose 103 mg/dL (80-110); HEMOLYSIS < 15 (0-50); Potassium 4.3 mmol/L (3.4-5.1); Sodium 134 mmol/L (137-145); Total Protein 7.2 g/dL (6.3-8.2)
== END ==
PROVIDERS: PCP Nurse Practitioner; Referring Provider Registered Nurse Diabetes Educator; Visit Provider Registered Nurse Diabetes Educator
DX: R10.9 Unspecified abdominal pain (principal)
CPT/HCPCS: 36415; 80053; 85025; 87086

== ENCOUNTER → 2023-03-28 11:32 | Outpatient (CLI) | payer MEDICARE, BC, SELFPAY ==
[2023-03-28 13:33] LABS: Appearance Urine UA CLEAR; Bilirubin Urine UA NEGATIVE (NEGATIVE); Color Urine UA YELLOW; Glucose Urine UA NEGATIVE (Negative); Ketones Urine UA NEGATIVE (NEGATIVE); Leukocyte Esterase Urine UA 2+ (NEGATIVE); Nitrite Urine UA NEGATIVE (Negative); Occult Blood Urine UA NEGATIVE (Negative); Protein Urine UA NEGATIVE (Negative); Urobilinogen Urine UA 0.2 E.U./dL (0.2)
[2023-03-28 13:38] LABS: pH Urine UA 6.5 (4.5-8.0)
[2023-03-28 13:39] LABS: RBC Urine None Seen (0-5/HPF)
[2023-03-28 13:40] LABS: Bacteria Urine Many (>30); Culture Indicated Urine Specimen Cultured; Squamous Epithelial Cell Urine 5-10 /HPF (0-5/HPF); WBC Urine 10-30/HPF (0-5/HPF)
== END ==
PROVIDERS: PCP Nurse Practitioner; Visit Provider Family Medicine
DX: R10.9 Unspecified abdominal pain (principal)
CPT/HCPCS: 81003; 81015; 87077; 87086; 87186

== ENCOUNTER → 2023-10-18 09:34 | Outpatient (CLI) | payer MEDICARE, BC, SELFPAY ==
--- NOTE | 2023-10-18 09:36 | DI.CT.S_ITS ---
PROCEDURE: CT CHEST WO CON INDICATIONS: eval/tx TECHNIQUE: Noncontrast 5 mm thick sections acquired from the pulmonary apices to the posterior costophrenic angles. 1 mm lung window, 5 mm thick coronal and sagittal and 7 mm axial MIP reformats were then acquired. For radiation dose reduction, the following was used: automated exposure control, adjustment of mA and/or kV according to patient size. COMPARISON: [facility], CT, CT CHEST WO CON, 10/27/2022, 10:00. FINDINGS: Image quality: Diagnostic. Lower Neck: No enlarged lymph nodes. Thyroid: Right thyroid nodule is present as before, measuring roughly 40 mm. Axillae: No enlarged lymph nodes. Chest Wall: Unremarkable. Bones: Unremarkable. Lungs and Pleura: No pneumothorax or pleural effusions. Stable 5 mm ground-glass nodule within the left upper lobe posteromedially (image 54). Stable 5 mm nodule within the left lower lobe laterally (image 139). Stable 3 mm ground-glass nodule within the left lung base posterolaterally (image 208). Heart: Heart size is normal. Calcification of the coronary vasculature. No pericardial effusion. Thoracic Vessels: The aorta and pulmonary arteries demonstrate normal size. Mediastinum and Francine: No enlarged lymph nodes. Esophagus: No wall thickening. No hiatal hernia. Upper Abdomen: Visualized upper abdomen solid organs and bowel loops appear normal. IMPRESSION: 1. Stable pulmonary nodules. 2. Slight increase in right thyroid nodule, which could be further assessed with ultrasound, if clinically indicated. 3. Coronary artery disease. Dictated by: Anastasiya Buenrostro M.D. on 10/18/2023 at 10:44 Approved by: Anastasiya Buenrostro M.D. on 10/18/2023 at 10:49
== END ==
LOC: CT 09:35
PROVIDERS: PCP Nurse Practitioner; Referring Provider Nurse Practitioner; Visit Provider Nurse Practitioner
DX: R91.8 Other nonspecific abnormal finding of lung field (principal); E04.1 Nontoxic single thyroid nodule; I25.10 Atherosclerotic heart disease of native coronary artery without angina pectoris
CPT/HCPCS: 71250

== ENCOUNTER → 2023-10-24 09:12 | Outpatient (CLI) | payer MEDICARE, BC, SELFPAY | PROVIDERS: PCP Nurse Practitioner; Visit Provider Nurse Practitioner | DX: Z87.440 Personal history of urinary (tract) infections (principal) | CPT/HCPCS: 87086 ==

== ENCOUNTER → 2023-11-28 09:27 | Outpatient (CLI) | payer MEDICARE, BC, SELFPAY ==
[2023-11-28 10:47] LABS: Appearance Urine UA CLEAR; Bilirubin Urine UA NEGATIVE (NEGATIVE); Color Urine UA YELLOW; Glucose Urine UA NEGATIVE (Negative); Ketones Urine UA 1+ (NEGATIVE); Leukocyte Esterase Urine UA 2+ (NEGATIVE); Nitrite Urine UA NEGATIVE (Negative); Occult Blood Urine UA NEGATIVE (Negative); Protein Urine UA TRACE (Negative)
[2023-11-28 11:17] LABS: Bacteria Urine Moderate (10-30); Culture Indicated Urine Specimen Cultured; Hyaline Casts Urine 1-5/LPF; RBC Urine 1-5/HPF (0-5/HPF); Squamous Epithelial Cell Urine 1-5 /HPF (0-5/HPF); Urine Volume 10mL (spun); WBC Urine 5-10/HPF (0-5/HPF)
== END ==
PROVIDERS: PCP Nurse Practitioner; Referring Provider Nurse Practitioner; Visit Provider Nurse Practitioner
DX: R30.0 Dysuria (principal)
CPT/HCPCS: 81001; 87086

== ENCOUNTER → 2023-12-21 13:08 | Outpatient (CLI) | payer MEDICARE, BC, SELFPAY ==
[2023-12-21 15:41] LABS: Vitamin B12 > 1000 pg/mL (239-931)
== END ==
PROVIDERS: PCP Nurse Practitioner; Referring Provider Physician Assistant; Visit Provider Physician Assistant
DX: E53.8 Deficiency of other specified B group vitamins (principal)
CPT/HCPCS: 36415; 82607

== ENCOUNTER → 2024-01-17 06:45 | Outpatient (CLI) | payer MEDICARE, BC, SELFPAY ==
[2024-01-17 08:26] LABS: Alanine Aminotransferase 20 IU/L (<35); Albumin Globulin Ratio 1.5 (1.0-2.8); Alkaline Phosphatase 67 U/L (38-126); Aspartate Aminotransferase 25 IU/L (14-36); BUN Creatinine Ratio 21.3 (6-22); Bilirubin Total 0.6 mg/dL (0.2-1.3); Blood Urea Nitrogen 13 mg/dL (7-17); Calcium 9.6 mg/dL (8.4-10.2); Carbon Dioxide 27 mmol/L (22-32); Chloride 103 mmol/L (98-107); Cholesterol 220 mg/dL (140-199); Estimated Glomerular Filt Rate > 60 mL/min (>60); Globulin 2.6 g/dL (1.7-4.1); Glucose 101 mg/dL (80-110); HDL Cholesterol 65 mg/dL (40-60); HEMOLYSIS < 15 (0-50); LDL Cholesterol Calculated 133 mg/dL (<100); Potassium 4.3 mmol/L (3.4-5.1); Sodium 133 mmol/L (137-145); Total Protein 6.6 g/dL (6.3-8.2); Triglycerides 108 mg/dL (35-150)
[2024-01-17 11:00] LABS: Appearance Urine UA SL CLOUDY; Bilirubin Urine UA NEGATIVE (NEGATIVE); Color Urine UA YELLOW; Glucose Urine UA NEGATIVE (Negative); Ketones Urine UA NEGATIVE (NEGATIVE); Leukocyte Esterase Urine UA 3+ (NEGATIVE); Nitrite Urine UA POSITIVE (Negative); Occult Blood Urine UA TRACE-INTACT (Negative); Protein Urine UA TRACE (Negative)
[2024-01-17 11:14] LABS: RBC Urine 0-1/HPF (0-5/HPF); Urine Volume Low Vol <10mL (spun)
[2024-01-17 11:15] LABS: Bacteria Urine Many (>30); Culture Indicated Urine Specimen Cultured; Squamous Epithelial Cell Urine 5-10 /HPF (0-5/HPF); WBC Urine 10-30/HPF (0-5/HPF)
== END ==
PROVIDERS: PCP Nurse Practitioner; Referring Provider Nurse Practitioner; Visit Provider Nurse Practitioner
DX: E78.00 Pure hypercholesterolemia, unspecified (principal); I25.10 Atherosclerotic heart disease of native coronary artery without angina pectoris; Z79.899 Other long term (current) drug therapy; R30.0 Dysuria
CPT/HCPCS: 36415; 80053; 80061; 81001; 87077; 87086

== ENCOUNTER 2024-01-23 09:27 | Emergency (ER) | payer MEDICARE, BC, SELFPAY ==
[2024-01-23] VITALS (18 sets, daily range): BP systolic 128–203; BP diastolic 72–136; PULSE 63–86; RESP 16–17; TEMP 36.9; O2SAT 95–99; BMI 28.3
--- NOTE | 2024-01-23 12:07 | PC.NURSE ---
Patient reports repeated E. Coli infections with cultures showing multiple resistances. PCP Estefania leon called and spoke to this EDRN regarding concerns for persistent infections despite antibiotics and urinary retention issues. She had beent aking cefdinir and was switched to Macrobid due to resistance to cephalosporins. patient has been on flomax for a month, patient had bloodwork last week which showed normal kidney function. Patient alsor eports some swelling in elgs. Per the patient. Dr. Estefania leon wants her to see a urologist/personal injury legal assistant down in [place] because she thinks that the uTI's are a result of prolapse. Patient reports she has had a Pessary in since 2013. last time it was cleaned was in October.
[2024-01-23 12:42] LABS: Add Manual Diff / Slide Review NO; Basophils Absolute Auto 100 /uL (0-100); Basophils Percent Auto 1.3 % (0-2); Eosinophils Absolute Auto 100 /uL (0-450); Eosinophils Percent Auto 1.1 % (2-4); Hematocrit 40.7 % (36-46); Hemoglobin 13.9 g/dL (12.0-16.0); Lymphocytes Absolute Auto 2200 /uL (1100-4500); Lymphocytes Percent Auto 31.7 % (25-40); Mean Corpuscular HGB Conc 34.2 % (30-36); Mean Corpuscular Hemoglobin 32.7 PG (26-34); Mean Corpuscular Volume 95.6 fL (80-100); Monocytes Absolute Auto 600 /uL (0-900); Monocytes Percent Auto 9.2 % (3-14); Neutrophils Absolute Auto 4000 /uL (1500-7000); Neutrophils Percent Auto 56.7 % (50-75); Platelet Count 308 X10^3/uL (150-400); Red Blood Cell Count 4.26 X10^6/uL (4.0-5.2); Red Cell Distribution Width 12.7 % (11.6-14.8)
[2024-01-23 12:53] LABS: Bacteria Urine Occasional (0-1); Culture Indicated Urine Specimen Cultured; RBC Urine None Seen (0-5/HPF); Squamous Epithelial Cell Urine 0-1 /HPF (0-5/HPF); Urine Volume 10mL (spun); WBC Urine 0-1/HPF (0-5/HPF)
[2024-01-23 13:04] LABS: Alanine Aminotransferase 24 IU/L (<35); Albumin 4.6 g/dL (3.5-5.0); Albumin Globulin Ratio 1.4 (1.0-2.8); Alkaline Phosphatase 77 U/L (38-126); Aspartate Aminotransferase 33 IU/L (14-36); BUN Creatinine Ratio 18.2 (6-22); Bilirubin Total 0.6 mg/dL (0.2-1.3); Blood Urea Nitrogen 12 mg/dL (7-17); Calcium 9.9 mg/dL (8.4-10.2); Carbon Dioxide 26 mmol/L (22-32); Chloride 101 mmol/L (98-107); Estimated Glomerular Filt Rate > 60 mL/min (>60); Globulin 3.2 g/dL (1.7-4.1); Glucose 106 mg/dL (80-110); HEMOLYSIS < 15 (0-50); Lipase 119 U/L (23-300); Potassium 4.2 mmol/L (3.4-5.1); Sodium 136 mmol/L (137-145); Total Protein 7.8 g/dL (6.3-8.2)
--- NOTE | 2024-01-23 14:15 | ED_ITS ---
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 She denies fevers or chills. She denies nausea or vomiting. She denies flank pain. She is keeping the medications down. Related Data Home Medications Medication Instructions Recorded Confirmed ezetimibe 10 mg tablet (Zetia) 20 mg PO Q DAY ##0 02/03/10 01/23/24 cranberry extract 200 mg capsule 200 mg PO DAILY 03/15/19 01/23/24 (Ellura) acetaminophen 500 mg tablet 1,000 mg PO QID PRN 12/12/19 01/23/24 (Tylenol Extra Strength) gabapentin 100 mg capsule 200 mg PO BEDTIME 11/02/22 01/23/24 methocarbamol 500 mg tablet 1,000 mg PO BID 01/11/23 01/23/24 losartan 100 1 tab PO DAILY 03/17/23 01/23/24 mg-hydrochlorothiazide 12.5 mg tablet estradiol 10 mcg vaginal tablet 10 mcg vaginal 3XW 10/24/23 01/23/24 alprazolam 0.25 mg tablet mg PO 12/12/23 01/23/24 amlodipine 2.5 mg tablet 2.5 mg PO DAILY 12/12/23 01/23/24 nitrofurantoin macrocrystal 50 mg 50 mg PO DAILY 12/12/23 01/23/24 capsule Previous Rx's Medication Instructions Recorded baclofen 5 mg tablet 10 mg (2 x 5 mg) PO BEDTIME PRN 03/03/23 muscle spasm #60 tabs rosuvastatin 5 mg tablet 5 mg PO DAILY #12 tabs 10/24/23 tamsulosin 0.4 mg capsule 0.4 mg PO DAILY #60 caps 12/21/23 phenazopyridine 100 mg tablet 100 mg PO TID #12 tabs 01/17/24 (Pyridium) cephalexin 500 mg capsule 500 mg PO BID 7 days #14 caps 01/23/24 Allergies Allergy/AdvReac Type Severity Reaction Status Date / Time amoxicillin AdvReac Hives Verified 01/23/24 09:38 ciprofloxacin [From Cipro] AdvReac Hives Verified 01/23/24 09:38 Patient History Medical History Hypercholesterolemia CAD (coronary artery disease) Chronic abdominal pain Intrauterine pessary Pessary maintenance Polymyalgia rheumatica Carpal tunnel syndrome Skin sore Paresthesia of hand, bilateral Pulmonary nodules/lesions, multiple Autoimmune disorder Thyroid nodule Lumbar radiculopathy, chronic Cervical radiculopathy Other spondylosis with radiculopathy, lumbar region Chronic insomnia Lower back pain Neck pain Neuropathic pain Vision disorder Abnormal chest x-ray (~2018) Shoulder pain Osteopenia Fractures Chronic back pain Mumps Measles Chicken pox Fibroids Frequent UTI (~2013) Hemorrhoid Colon polyps (~2000) Colitis (~2013) Skin cancer (~2014) Diverticulitis Other specified epidermal thickening Presence of pessary Midline cystocele Keratoacanthoma of lower leg Hyperlipidemia Hypertension Surgical History Anesthesia History of knee surgery Cataracts, bilateral (~2009) Status post appendectomy Status post vaginal hysterectomy (~2013) Family History Father Cancer Mother No problems noted. Family/Other No problems noted. alcohol intake frequency: a few times a week Substance Use Type: does not use Exam Narrative Exam Narrative: GENERAL: Well-developed patient, in mild distress. HEAD: Atraumatic. Normocephalic. EYES: Pupils equal round and reactive. Extraocular motions intact. No scleral icterus. No injection or drainage. ENT: Nose without bleeding, purulent drainage. Throat without erythema, tonsillar hypertrophy or exudate. Airway patent. NECK: Trachea midline. Non tender CARDIOVASCULAR: Regular rate and rhythm without murmurs, gallops, or rubs. RESPIRATORY: Clear to auscultation. Breath sounds equal bilaterally. No wheezes, rales, or rhonchi. GASTROINTESTINAL: Abdomen soft, non-tender, nondistended. EXTREMITIES: No edema or joint tenderness. BACK: Nontender without deformity or crepitance. No flank tenderness. NEURO: AOx3. SKIN: No rash or erythema of visible areas Initial Vital Signs Initial Vital Signs: Vital Signs Temperature 98.4 F 01/23/24 09:33 Pulse Rate 78 01/23/24 09:33 Respiratory Rate 17 01/23/24 09:33 Blood Pressure 128/91 H 01/23/24 09:33 Pulse Oximetry 98 01/23/24 09:33 Oxygen Delivery Method Room Air 01/23/24 09:33 Course Orders Ordered: ED Orders 01/23/24 12:00 Urine Culture Stat Urine Microscopic Stat 01/23/24 12:30 Complete Blood Count AUTO DIFF Stat Comprehensive Metabolic Panel Stat Lipase Stat Discontinued Medications Ondansetron HCl (Ondansetron 4 Mg/2 Ml Inj) 4 mg IV NOW PRN PRN Reason: Nausea And Vomiting Ondansetron HCl (Ondansetron 4 Mg Odt) 4 mg PO NOW PRN PRN Reason: Nausea And Vomiting Vital Signs Vital signs: Vital Signs - 8 hr 01/23/24 12:02 01/23/24 12:03 01/23/24 12:03 Pulse Rate 74 Respiratory Rate Blood Pressure 193/88 H Pulse Oximetry 95 98 Oxygen Delivery Method 01/23/24 12:30 01/23/24 12:30 01/23/24 13:00 Pulse Rate 70 65 Respiratory Rate Blood Pressure 189/136 H Pulse Oximetry 98 99 Oxygen Delivery Method 01/23/24 13:01 01/23/24 13:01 01/23/24 13:30 Pulse Rate 79 63 Respiratory Rate Blood Pressure 203/88 H Pulse Oximetry 98 98 Oxygen Delivery Method 01/23/24 13:31 01/23/24 13:31 01/23/24 14:00 Pulse Rate 65 64 Respiratory Rate Blood Pressure 178/74 H Pulse Oximetry 98 Oxygen Delivery Method 01/23/24 14:01 01/23/24 14:01 01/23/24 14:11 Pulse Rate 75 Respiratory Rate Blood Pressure 173/73 H 162/72 H Pulse Oximetry 96 Oxygen Delivery Method 01/23/24 14:11 01/23/24 14:30 01/23/24 14:31 Pulse Rate 72 71 Respiratory Rate Blood Pressure 199/77 H Pulse Oximetry 97 99 Oxygen Delivery Method 01/23/24 14:31 01/23/24 15:00 01/23/24 15:01 Pulse Rate 71 64 Respiratory Rate Blood Pressure 138/110 H Pulse Oximetry 97 98 Oxygen Delivery Method 01/23/24 15:01 01/23/24 15:30 01/23/24 16:00 Pulse Rate 66 69 66 Respiratory Rate Blood Pressure Pulse Oximetry 98 98 98 Oxygen Delivery Method 01/23/24 16:41 Pulse Rate 86 Respiratory Rate 16 Blood Pressure 161/82 H Pulse Oximetry 98 Oxygen Delivery Method Room Air MDM - Female Genitourinary Lab Data Attestation: I reviewed the patient's lab results. 01/23/24 12:30 01/23/24 12:30 Labs: Lab Results 01/23/24 01/23/24 Range/Units 12:00 12:30 WBC 7.0 (4.5-11.0) X10^3/uL RBC 4.26 (4.0-5.2) X10^6/uL Hgb 13.9 (12.0-16.0) g/dL Hct 40.7 (36-46) % MCV 95.6 (80-100) fL MCH 32.7 (26-34) PG MCHC 34.2 (30-36) % RDW 12.7 (11.6-14.8) % Plt Count 308 (150-400) X10^3/uL Neut % (Auto) 56.7 (50-75) % Lymph % (Auto) 31.7 (25-40) % [place] % (Auto) 9.2 (3-14) % Eos % (Auto) 1.1 L (2-4) % Baso % (Auto) 1.3 (0-2) % Neut # (Auto) 4000 (2420-0642) /uL Lymph # (Auto) 2200 (7901-8492) /uL [place] # (Auto) 600 (0-900) /uL Eos # (Auto) 100 (0-450) /uL Baso # (Auto) 100 (0-100) /uL Sodium 136 L (137-145) mmol/L Potassium 4.2 (3.4-5.1) mmol/L Chloride 101 (98-107) mmol/L Carbon Dioxide 26 (22-32) mmol/L BUN 12 (7-17) mg/dL Creatinine 0.66 (0.52-1.04) mg/dL Estimated GFR > 60 (>60) mL/min BUN/Creatinine Ratio 18.2 (6-22) Glucose 106 (80-110) mg/dL Calcium 9.9 (8.4-10.2) mg/dL Total Bilirubin 0.6 (0.2-1.3) mg/dL AST 33 (14-36) IU/L ALT 24 (<35) IU/L Alkaline Phosphatase 77 (38-126) U/L Total Protein 7.8 (6.3-8.2) g/dL Albumin 4.6 (3.5-5.0) g/dL Globulin 3.2 (1.7-4.1) g/dL Albumin/Globulin Ratio 1.4 (1.0-2.8) Lipase 119 (23-300) U/L Urine RBC None seen (0-5/HPF) Urine WBC 0-1/hpf (0-5/HPF) Ur Squamous Epith Cells 0-1 /hpf (0-5/HPF) Urine Bacteria Occasional (0-1) (None) Ur Culture Indicated? Specimen cultured Vol Urine Centrifuged 10ml (spun) Urine Dip Bedside Urine Glucose Negative Bedside Urine Bilirubin - Negative Bedside Urine Ketone - Negative Urine Specific Rodman 1.010 Bedside Urine Occult Blood - Negative Bedside Urine pH 7.0 Bedside Urine Protein - Negative Bedside Urine Urobilinogen - Negative Bedside Urine Nitrite - Negative Bedside Urine Leukocytes ++ 125 Esterase MDM Narrative Medical decision making narrative: 83-year-old female with history of recurrent multidrug recent UTI, day 3 of 7 oral nitrofurantoin antibiotic, was not feeling well today, concern for possible need for IV antibiotics, here for further evaluation. Afebrile, sirs screen negative. Abdomen benign, no CVA tenderness. Normal vitals. Urinalysis today negative. Blood work showed normal renal function, would blood cell count not elevated. Patient informed labs encouraging, no fever, perhaps nitrofurantoin is working, renal function reassuring, continue nitrofurantoin now, based on her history of multi-drug resistant E coli. It is sensitive on lab review to nitrofurantoin, continue this antibiotic for now for full 7 day course. Encouraged to drink plenty of fluids. Take symptoms and follow up urine after completion of course of antibiotics, to document cure. Return precautions discussed. Improved, discharged home Discharge Plan Departure Patient Disposition: Home Clinical Impression: Urinary tract infection Instructions: DI for Urinary Tract Infection (UTI) Activity Restrictions/Additional Instructions: History of multi-drug resistant urine infections, and allergies to various antibiotics, most recently day 3 of planned 7 day course nitrofurantoin, not feeling well. Reassuring examination, abdomen soft, nondistended, normal bowel tones, no tenderness to the flanks areas where the kidneys would be. Lab tests unremarkable, including good renal function. Urine dip test did not look grossly obviously infected. It seems like you are improving on your current oral antibiotic therapy, continue your nitrofurantoin antibiotic for full 7 day course. Recheck with your regular provider at the end of the treatment course to recheck your urine. Return earlier to this/nearest emergency department for any change worsening symptoms or any concerns prior Prescriptions: No Action amlodipine 2.5 mg tablet 2.5 mg PO DAILY nitrofurantoin macrocrystal 50 mg capsule 50 mg PO DAILY alprazolam 0.25 mg tablet PO ezetimibe [Zetia] 10 MG tablet 20 mg PO Q DAY Qty: 0 gabapentin 100 mg capsule 200 mg PO BEDTIME baclofen 5 mg tablet 10 mg PO BEDTIME PRN (Reason: muscle spasm) Qty: 60 0RF Rx Instructions: Take 5-10mg at bedtime daily for muscle spasms and pain phenazopyridine [Pyridium] 100 mg tablet 100 mg PO TID Qty: 12 0RF estradiol 10 mcg tablet 10 mcg vaginal 3XW rosuvastatin 5 mg tablet 5 mg PO DAILY Qty: 12 3RF Rx Instructions: Take 1 tab weekly to reduce risk for heart attack and stroke. losartan-hydrochlorothiazide 100-12.5 mg tablet 1 tab PO DAILY cranberry extract [Ellura] 200 mg capsule 200 mg PO DAILY cephalexin 500 mg capsule 500 mg PO BID 7 Days Qty: 14 0RF tamsulosin 0.4 mg capsule 0.4 mg PO DAILY Qty: 60 1RF Rx Instructions: Take one tablet each morning if no improvement within 10 days increase to 2 capsules each morning, if no improvement in 2 more weeks, discontinue methocarbamol 500 mg tablet 1,000 mg PO BID acetaminophen [Tylenol Extra Strength] 500 mg tablet 1,000 mg PO QID PRN Referrals: Estefania Mcfarlane ARNP [Primary Care Provider] - Stand Alone Forms: Patient Portal/API
== END 2024-01-23 16:43 | disposition home or self-care (01) ==
PROVIDERS: Emergency Provider Emergency Medicine; PCP Nurse Practitioner
DX: N39.0 Urinary tract infection, site not specified (principal)
CPT/HCPCS: 36415; 80053; 81003; 81015; 83690; 85025; 87086; 99283

== ENCOUNTER → 2024-01-26 09:39 | Outpatient (CLI) | payer MEDICARE, BC, SELFPAY ==
--- NOTE | 2024-01-26 09:40 | DI.RAD.S_ITS ---
PROCEDURE: XR ANKLE LT MIN 3V INDICATIONS: Left ankle pain TECHNIQUE: 3 views of the ankle were acquired. COMPARISON: None. FINDINGS: Bones: No fractures or dislocations. Ankle mortise is normally aligned. No suspicious bony lesions. Soft tissues: No tibiotalar joint effusion. Achilles tendon appears normal. IMPRESSION: No acute bony abnormality or significant effusion. Dictated by: Paulie Ordaz M.D. on 01/26/2024 at 22:36 Approved by: Paulie Ordaz M.D. on 01/26/2024 at 22:37
== END ==
PROVIDERS: PCP Nurse Practitioner; Referring Provider Nurse Practitioner; Visit Provider Nurse Practitioner
DX: M25.572 Pain in left ankle and joints of left foot (principal)
CPT/HCPCS: 73610

== ENCOUNTER → 2024-02-01 09:29 | Outpatient (CLI) | payer MEDICARE, BC, SELFPAY | PROVIDERS: PCP Nurse Practitioner; Visit Provider Nurse Practitioner Family | DX: N39.0 Urinary tract infection, site not specified (principal) | CPT/HCPCS: 87086 ==

== ENCOUNTER → 2024-11-21 13:32 | Outpatient (CLI) | payer MEDICARE, BC, SELFPAY ==
--- NOTE | 2024-11-21 13:35 | DI.CT.S_ITS ---
PROCEDURE: CT CHEST WO CON INDICATIONS: pulmonary nodules TECHNIQUE: Noncontrast 5 mm thick sections acquired from the pulmonary apices to the posterior costophrenic angles. 1 mm lung window, 5 mm thick coronal and sagittal and 7 mm axial MIP reformats were then acquired. For radiation dose reduction, the following was used: automated exposure control, adjustment of mA and/or kV according to patient size. COMPARISON: [facility], CT, CT CHEST WO CON, 10/18/2023, 9:42. FINDINGS: Image quality: Diagnostic. Lower Neck: No enlarged lymph nodes. Thyroid: Stable right thyroid nodule. Axillae: No enlarged lymph nodes. Chest Wall: Unremarkable. Bones: Unremarkable. Lungs and Pleura: Scattered, less than 5 mm ground-glass and solid nodules noted on images 45, 139, and 212. No change from the prior exam Heart: Heart size is normal. No pericardial effusion. Coronary artery vascular calcification Thoracic Vessels: The aorta and pulmonary arteries demonstrate normal size. Mediastinum and Francine: No enlarged lymph nodes. Esophagus: No wall thickening. No hiatal hernia. Upper Abdomen: Visualized upper abdomen solid organs and bowel loops appear normal. IMPRESSION: Stable left-sided small pulmonary nodules and right thyroid nodule, all unchanged from the prior exams Approved by: Francois Barnard M.D. on 11/22/2024 at 10:02
== END ==
PROVIDERS: PCP Nurse Practitioner Family; Referring Provider Nurse Practitioner Family; Visit Provider Nurse Practitioner Family
DX: R91.8 Other nonspecific abnormal finding of lung field (principal); I25.10 Atherosclerotic heart disease of native coronary artery without angina pectoris; E04.1 Nontoxic single thyroid nodule
CPT/HCPCS: 71250

== ENCOUNTER 2024-11-28 09:00 | Day surgery (SDC) | payer MEDICARE, BC, SELFPAY ==
[2024-11-21 12:00] VITALS: BMI 26.1
[2024-11-28 09:29] VITALS: BMI 25.0
[2024-11-28 09:37] VITALS: BP 153/69; PULSE 86; RESP 16; TEMP 36.1; O2SAT 96
[2024-11-28] MEDS: LACTATED RINGERS 1,000 ML 42 ML IV (09:50)
--- NOTE | 2024-11-28 11:45 | PM.PREOP ---
Pre-operative Note COVID-19 COVID-19 status: Not tested Interval Note History & Physical reviewed/Exam performed by Physician: Yes Changes to H&P: No
[2024-11-28] MEDS: CEFAZOLIN 2 GM/100 ML PREMIX 100 ML IV (12:05)
--- NOTE | 2024-11-28 12:16 | SUR.OPER ---
Supine on padded OR bed, head on pillow, Left arm secured on padded arm board, right arm on hand table, legs uncrossed, safety belt at thigh, tape over blanket over lower legs.
--- NOTE | 2024-11-28 12:17 | SUR.OPER ---
Supine on padded OR bed, head on pillow, Left arm secured on padded arm board, right on on padded arm board, legs uncrossed, safety belt at thigh.
[2024-11-28] MEDS: BUPIVACAINE 0.5% (PF) 30 ML VIAL INJ (12:25)
[2024-11-28] MEDS: LIDOCAINE 1% 20 ML INJ (12:27)
[2024-11-28 12:37] VITALS: BP 139/86; PULSE 73; RESP 18; TEMP 36.2; O2SAT 98
--- NOTE | 2024-11-28 12:40 | PM.OP.1 ---
Operative Date/Time/Diagnoses Date of procedure: 11/28/24 Time of procedure: 12:00 Pre-op diagnosis: right carpal tunnel syndrome Post-op diagnosis: same Procedure & Clinicians Procedure: RIGHT Carpal Tunnel Release - open Same procedure(s) as scheduled: Yes Surgeon: Mary Lou Rodriges Anesthesia Type: MAC +/- and Local Operative Notes Findings: Compressed median nerve Closure Type: primary Applied: none Estimated Blood Loss (mL): 1 Procedure in detail: Preoperative diagnosis: RIGHT Carpal Tunnel Syndrome Procedure performed: Carpal Tunnel Release, Open Postoperative diagnosis: Same Primary Surgeon: Mary Lou Rodriges DO Anesthesia: Local & MAC EBL: 1 ml Tourniquet: 13 minutes @ 200 mmHg Indication For Surgery: Patient presented with signs and symptoms of carpal tunnel syndrome.? Conservative treatment did not result in adequate symptom improvement. The risks, benefits, and alternatives were discussed. Risks include pain, bleeding, infection, damage to nearby structures, pillar pain, wound healing complications, thumb weakness, numbness, lack of symptom relief, need for further surgery, DVT, PE, stroke, and . Written consent was obtained. Operative Findings: Thickened transverse carpal ligament was released.? No carpal tunnel masses. Procedure in Detail: The patient was met in the pre-operative hold area. Consent was verified and operative extremity was signed. The patient then met with anesthesia and was brought back to the operating room. The patient was placed supine on the operating table. Anesthetic was administered. A timeout was performed per protocol. All were in agreement and we proceeded. Local anesthesia was injected (5 cc of 1% lidocaine plain/0.5% Marcaine) after chlorprep.? The extremity was then prepped and draped in the usual sterile fashion. A 3cm longitudinal incision was made in line with the ulnar border of the ring finger starting at Luna's Cardinal line distally. This was just radial to the hook of the hamate. Sharp dissection was brought down through the palmar fascia. Retractors were placed. The transverse carpal ligament was identified and a knife was used to incise it longitudinally until fat was seen distally in the palm. Tenotomy scissors were then used to create a pocket just superficial to the transverse carpal ligament and a freer was placed. The scissors were then placed deep to the ligament to bluntly separate the contents of the canal from ligament. I then pointed the tips of the scissors ulnarly and completed the release 2 cm into the antebrachial fascia. A freer elevator was used to confirm complete release both proximally and distally. The wound was then irrigated copiously and closed with 4-0 nylon in a horizontal mattress configuration. A sterile bulky dressing was applied. Complications: none Post-operative Condition: stable Disposition: PACU
== END 2024-11-28 13:10 | disposition home or self-care (01) ==
PROVIDERS: PCP Nurse Practitioner Family; Referring Provider Orthopaedic Surgery; Visit Provider Orthopaedic Surgery
PROC: (CPT 64721; principal; 2024-11-28 10:15)
DX: G56.01 Carpal tunnel syndrome, right upper limb (principal)
CPT/HCPCS: 64721; J0690; J1100; J1885; J2405; J2704

== ENCOUNTER → 2024-12-10 10:56 | Outpatient (CLI) | payer MEDICARE, BC, SELFPAY ==
--- NOTE | 2024-12-10 10:57 | DI.US.S_ITS ---
PROCEDURE: US THYROID INDICATIONS: rt thyroid nodule TECHNIQUE: Real-time scanning was performed of the thyroid gland, with image documentation. Forty-nine images COMPARISON: [facility], [place], US THYROID, 02/07/2020, 10:58. FINDINGS: Thyroid: Right lobe measures 5.6 x 3.4 x 2.6 cm. Left lobe measures 3.7 x 1.8 x 1.5 cm. Isthmus is 1.1 cm thick. Echotexture is heterogeneous diffusely. Nodule number: 1 Location: Right thyroid lobe middle and inferior Size: 3.8 x 3.4 x 2.4 cm. Previously 3.8 x 3.0 x 2.6 Composition: Solid Echogenicity: Hypoechoic Shape: wider than tall. Margins: Smooth Echogenic foci: Macrocalcifications Total points: 5 ACR TI-RADS category: 4 Nodule number: 2 Location: Left thyroid lobe lower 1/3 Size: 1.2 x 1.0 x 0.7 cm. Previously 0.9 x 0.9 x 0.8 cm. Composition: Solid Echogenicity: Isoechoic Shape: wider than tall. Margins: Smooth Echogenic foci: None Total points: 3 ACR TI-RADS category: TI-RADS 3 (mildly suspicious) Nodule number: 3 Location: Left thyroid lobe middle 1/3 Size: 1.1 x 1.1 x 0.7 cm. Previously 1.2 x 1.2 x 0.8 Composition: Solid Echogenicity: Hypoechoic Shape: wider than tall. Margins: Smooth Echogenic foci: None Total points: 3 ACR TI-RADS category: 3 Nodule number: 4 Location: Left thyroid lobe superior 1/3 Size: 1.0 x 1.0 x 0.8 cm. Previously 1.1 x 1.0 x 0.7 cm. Composition: Solid Echogenicity: Hypoechoic Shape: wider than tall. Margins: Smooth Echogenic foci: None Total points: 4 ACR TI-RADS category: 4 IMPRESSION: Multiple bilateral thyroid nodules as discussed above. By size criteria nodule 1. Right thyroid lobe would qualify for fine needle aspiration however appears to have previously been biopsied and there has been little significant change since the prior exam. Consider follow-up of this and the other lesions. ACR TI-RADS definitions and recommendations: TI-RADS 1 (benign): 0 points. FNA not needed. TI-RADS 2 (not suspicious): 2 points. FNA not needed. TI-RADS 3: 3 points. * FNA if 2.5 cm or larger, follow up if 1.5 cm or larger (at 1, 3, and 5 years). TI-RADS 4: 4-6 points. * FNA if 1.5 cm or larger, follow up if 1 cm or larger (at 1, 2, 3, and 5 years). TI-RADS 5: 7 points or more. * FNA if 1 cm or larger, follow up if 0.5 cm or larger (every year for 5 years). Dictated by: Get Cowart M.D. on 12/10/2024 at 12:10 Approved by: Get Cowart M.D. on 12/10/2024 at 12:22
== END ==
PROVIDERS: PCP Nurse Practitioner Family; Referring Provider Nurse Practitioner Family; Visit Provider Nurse Practitioner Family
DX: E04.1 Nontoxic single thyroid nodule (principal)
CPT/HCPCS: 76536